=== PATIENT | male | born 1950 | race Caucasian/White ===

== ENCOUNTER 2017-10-08 20:50 | Inpatient (IN) | payer MEDICARE, BC ==
[2017-10-08] MEDS ORDERED: IPRATROPIUM 0.5 MG/2.5 ML NEBU INHALATION STA (21:20)
[2017-10-08] MEDS ORDERED: ALBUTEROL NEBULIZED 2.5 MG/3 ML INHALATION STA (21:20)
[2017-10-08] MEDS ORDERED: SODIUM CHLORIDE 0.9% 1,000 ML IV STA ×2 (21:20→22:48)
[2017-10-08 21:34] LABS: Basophils # (A) 0.1 k/uL (0-0.2); Basophils % (A) 0 %; Eosinophils # (A) 0.1 k/uL (0-0.7); Eosinophils % (A) 1 %; HCT 43.7 % (39.0-53.0); HGB 15.2 gm/dL (13.0-17.5); Lymphocytes # (A) 1.1 k/uL (1.0-4.8); Lymphocytes % (A) 6 %; MCH 30.3 pg (25.0-35.0); MCHC 34.9 g/dL (31.0-37.0); Mean Platelet Volume 6.5; Monocytes # (A) 1.1 k/uL (0-1.0); Monocytes % (A) 6 %; Neutrophils # (A) 14.6 k/uL (1.3-7.7); Neutrophils % (A) 85 %; Platelet Count 306 k/uL (150-450); RBC 5.03 m/uL (4.30-5.90); RDW 13.6 % (11.5-15.5); WBC 17.2 k/uL (3.8-10.6)
--- NOTE | 2017-10-08 21:37 | XR ---
EXAMINATION: XR chest 2V portable DATE AND TIME: 10/08/2017 9:30 PM ORDERING PROVIDER: García Ferrer DO CLINICAL INDICATION: sob TECHNIQUE: AP portable upright x 2 COMPARISON: None. DESCRIPTION: The lungs are clear. The pleural spaces are negative. The cardiac silhouette is not enlarged. The mediastinal and pleural silhouettes are unremarkable. The skeletal structures are intact without focal findings. The soft tissues are unremarkable. IMPRESSION: NO ACUTE PROCESS.
[2017-10-08 21:44] LABS: Prothrombin Time 10.2 sec (9.0-12.0)
[2017-10-08 21:48] LABS: ALT 35 U/L (21-72); AST 30 U/L (17-59); Albumin 3.9 g/dL (3.5-5.0); Alkaline Phosphatase 97 U/L (38-126); Anion Gap 10 mmol/L; Blood Urea Nitrogen 29 mg/dL (9-20); Calcium 9.8 mg/dL (8.4-10.2); Carbon Dioxide 30 mmol/L (22-30); Chloride 99 mmol/L (98-107); Glucose 144 mg/dL (74-99); Magnesium 2.3 mg/dL (1.6-2.3); Potassium 4.1 mmol/L (3.5-5.1); Sodium 139 mmol/L (137-145); Total Bilirubin 0.3 mg/dL (0.2-1.3)
[2017-10-08 22:03] LABS: Partial Thromboplastin Time 20.1 sec (22.0-30.0)
[2017-10-08 22:13] LABS: Creatine Kinase 70 U/L (55-170)
--- NOTE | 2017-10-08 22:15 | ED ---
General Adult HPI - General Chief complaint: Shortness of Breath Stated complaint: ALEXANDRA Time Seen by Provider: 10/08/17 21:13 Source: patient, RN notes reviewed, old records reviewed Mode of arrival: ambulatory Limitations: no limitations - History of Present Illness Initial comments: This is a 67-year-old male the ER for evaluation today. Patient's friend ER for evaluation of significant shortness of breath. Patient hasn't U recent medical history including hospitalization for COPD, then further hospitalization for influenza with fever. Patient is sure he did not have pneumonia while he was just recently in the hospital. Patient discharged on Friday has had progressively worsening and increasing shortness of breath. Patient is denying chest pain. He denies current fever - Related Data Home Medications Medication Instructions Recorded Confirmed ALPRAZolam [Xanax] 0.5 mg PO DAILY PRN 10/08/17 10/08/17 Albuterol Inhaler [Ventolin Hfa 1 - 2 puff INHALATION RT-QID PRN 10/08/17 Inhaler] Aspirin EC [Ecotrin Low Dose] 81 mg PO DAILY 10/08/17 10/08/17 Atorvastatin [Lipitor] 40 mg PO HS 10/08/17 10/08/17 Diltiazem HCl [Cartia Xt] 180 mg PO DAILY 10/08/17 10/08/17 Doxycycline Monohydrate [Monodox] 100 mg PO BID 10/08/17 10/08/17 Famotidine [Pepcid] 20 mg PO BID 10/08/17 10/08/17 Fluticasone/Salmeterol [Advair 1 puff INHALATION RT-BID 10/08/17 10/08/17 500-50 Diskus] Fluticasone/Vilanterol [Breo 1 puff INHALATION RT-DAILY 10/08/17 10/08/17 Ellipta 100-25 Mcg Inhaler] Ipratropium-Albuterol Nebulize 3 ml INHALATION RT-QID 10/08/17 10/08/17 [Duoneb 0.5 mg-3 mg/3 ml Soln] Levothyroxine Sodium [Synthroid] 100 mcg PO DAILY 10/08/17 10/08/17 Multivitamins, Thera [Multivitamin 1 tab PO DAILY 10/08/17 10/08/17 (formulary)] Oseltamivir [Tamiflu] 75 mg PO Q12HR 10/08/17 10/08/17 Roflumilast [Daliresp] 500 mcg PO DAILY 10/08/17 10/08/17 guaiFENesin [Mucinex] 600 mg PO BID 10/08/17 10/08/17 predniSONE See Taper PO DAILY 10/08/17 10/08/17 Allergies Allergy/AdvReac Type Severity Reaction Status Date / Time loracarbef [From Lorabid] Allergy Rash/Hives Verified 10/08/17 21:34 Review of Systems ROS Statement: Those systems with pertinent positive or pertinent negative responses have been documented in the HPI. ROS Other: All systems not noted in ROS Statement are negative. Past Medical History Past Medical History: COPD, Hyperlipidemia, Hypertension, Thyroid Disorder History of Any Multi-Drug Resistant Organisms: None Reported Past Surgical History: Heart Catheterization With Stent Past Psychological History: No Psychological Hx Reported Smoking Status: Former smoker Past Alcohol Use History: None Reported Past Drug Use History: None Reported General Exam Limitations: no limitations General appearance: alert, in no apparent distress, anxious Head exam: Present: atraumatic, normocephalic, normal inspection Eye exam: Present: normal appearance, PERRL, EOMI. Absent: scleral icterus, conjunctival injection, periorbital swelling ENT exam: Present: normal exam, mucous membranes moist Neck exam: Present: normal inspection. Absent: tenderness, meningismus, lymphadenopathy Respiratory exam: Present: respiratory distress, wheezes, accessory muscle use, decreased breath sounds, prolonged expiratory. Absent: normal lung sounds bilaterally, rales, rhonchi, stridor Cardiovascular Exam: Present: regular rate, normal rhythm, normal heart sounds. Absent: systolic murmur, diastolic murmur, rubs, gallop, clicks GI/Abdominal exam: Present: soft, normal bowel sounds. Absent: distended, tenderness, guarding, rebound, rigid Extremities exam: Present: normal inspection, full ROM, normal capillary refill. Absent: tenderness, pedal edema, joint swelling, calf tenderness Back exam: Present: normal inspection Neurological exam: Present: alert, oriented X3, CN II-XII intact Psychiatric exam: Present: normal affect, normal mood Skin exam: Present: warm, dry, intact, normal color. Absent: rash Course Vital Signs 10/08/17 10/08/17 10/08/17 20:53 21:17 21:56 Temperature 98.1 F Pulse Rate 111 H 93 Respiratory 22 28 H Rate Blood Pressure 153/74 O2 Sat by Pulse 92 L Oximetry 10/08/17 22:21 Temperature Pulse Rate 92 Respiratory Rate Blood Pressure O2 Sat by Pulse Oximetry - Reevaluation(s) Reevaluation #1: 10/08/17 22:47 Patient with worsening symptoms after prolonged breathing treatment, will do a repeat breathing treatment and placed on BiPAP EKG Findings - EKG Comments: EKG Findings:: EKG shows sinus tachycardia rate 102, AR 144, QRS 96, QTc 440 Medical Decision Making - Medical Decision Making 67 male the ER for evaluation, significantly severe shortness of breath with history of COPD. Blood in the patient for hypoxia, on BiPAP with severe COPD exacerbation - Lab Data Result diagrams: 10/08/17 21:15 10/08/17 21:15 Lab Results 10/08/17 10/08/17 10/08/17 Range/Units 21:15 21:15 21:15 WBC 17.2 H (3.8-10.6) k/uL RBC 5.03 (4.30-5.90) m/uL Hgb 15.2 (13.0-17.5) gm/dL Hct 43.7 (39.0-53.0) % MCV 87.0 (80.0-100.0) fL MCH 30.3 (25.0-35.0) pg MCHC 34.9 (31.0-37.0) g/dL RDW 13.6 (11.5-15.5) % Plt Count 306 (150-450) k/uL Neutrophils % 85 % Lymphocytes % 6 % Monocytes % 6 % Eosinophils % 1 % Basophils % 0 % Neutrophils # 14.6 H (1.3-7.7) k/uL Lymphocytes # 1.1 (1.0-4.8) k/uL Monocytes # 1.1 H (0-1.0) k/uL Eosinophils # 0.1 (0-0.7) k/uL Basophils # 0.1 (0-0.2) k/uL PT (9.0-12.0) sec INR (<1.2) APTT (22.0-30.0) sec Sodium 139 (137-145) mmol/L Potassium 4.1 (3.5-5.1) mmol/L Chloride 99 (98-107) mmol/L Carbon Dioxide 30 (22-30) mmol/L Anion Gap 10 mmol/L BUN 29 H (9-20) mg/dL Creatinine 0.65 L (0.66-1.25) mg/dL Est GFR (CKD-EPI)AfAm >90 (>60 ml/min/1.73 sqM) Est GFR (CKD-EPI)NonAf >90 (>60 ml/min/1.73 sqM) Glucose 144 H (74-99) mg/dL Calcium 9.8 (8.4-10.2) mg/dL Magnesium 2.3 (1.6-2.3) mg/dL Total Bilirubin 0.3 (0.2-1.3) mg/dL AST 30 (17-59) U/L ALT 35 (21-72) U/L Alkaline Phosphatase 97 (38-126) U/L Total Creatine Kinase 70 (55-170) U/L CK-MB (CK-2) 2.2 (0.0-2.4) ng/mL CK-MB (CK-2) Rel Index 3.1 Troponin I <0.012 (0.000-0.034) ng/mL NT-Pro-B Natriuret Pep pg/mL Total Protein 7.0 (6.3-8.2) g/dL Albumin 3.9 (3.5-5.0) g/dL 10/08/17 10/08/17 Range/Units 21:15 21:15 WBC (3.8-10.6) k/uL RBC (4.30-5.90) m/uL Hgb (13.0-17.5) gm/dL Hct (39.0-53.0) % MCV (80.0-100.0) fL MCH (25.0-35.0) pg MCHC (31.0-37.0) g/dL RDW (11.5-15.5) % Plt Count (150-450) k/uL Neutrophils % % Lymphocytes % % Monocytes % % Eosinophils % % Basophils % % Neutrophils # (1.3-7.7) k/uL Lymphocytes # (1.0-4.8) k/uL Monocytes # (0-1.0) k/uL Eosinophils # (0-0.7) k/uL Basophils # (0-0.2) k/uL PT 10.2 (9.0-12.0) sec INR 1.0 (<1.2) APTT 20.1 L (22.0-30.0) sec Sodium (137-145) mmol/L Potassium (3.5-5.1) mmol/L Chloride (98-107) mmol/L Carbon Dioxide (22-30) mmol/L Anion Gap mmol/L BUN (9-20) mg/dL Creatinine (0.66-1.25) mg/dL Est GFR (CKD-EPI)AfAm (>60 ml/min/1.73 sqM) Est GFR (CKD-EPI)NonAf (>60 ml/min/1.73 sqM) Glucose (74-99) mg/dL Calcium (8.4-10.2) mg/dL Magnesium (1.6-2.3) mg/dL Total Bilirubin (0.2-1.3) mg/dL AST (17-59) U/L ALT (21-72) U/L Alkaline Phosphatase (38-126) U/L Total Creatine Kinase (55-170) U/L CK-MB (CK-2) (0.0-2.4) ng/mL CK-MB (CK-2) Rel Index Troponin I (0.000-0.034) ng/mL NT-Pro-B Natriuret Pep 240 pg/mL Total Protein (6.3-8.2) g/dL Albumin (3.5-5.0) g/dL - Radiology Data Radiology results: report reviewed (Chest x-rays negative for acute disease), image reviewed Critical Care Time Critical Care Time: Yes Total Critical Care Time: 31 Disposition Clinical Impression: Acute exacerbation of chronic obstructive airways disease, Acute respiratory failure Disposition: ADMITTED IP TO THIS HOSP Condition: Serious Referrals: Matthew Muniz MD [Primary Care Provider] - 1-2 days
[2017-10-08 22:24] LABS: Creatine Kinase MB 2.2 ng/mL (0.0-2.4); Troponin I <0.012 ng/mL (0.000-0.034)
[2017-10-08] MEDS ORDERED: methylPREDNISolone SOD SUCCI 125 MG/2 ML VIAL IV STA (22:39)
[2017-10-08] MEDS ORDERED: MORPHINE SULFATE/PF 10MG/10ML VL IVP PRN (22:48)
[2017-10-08] MEDS ORDERED: MORPHINE SULFATE/PF 10MG/10ML VL IVP STA (22:48)
[2017-10-08] MEDS ORDERED: SODIUM CHLORIDE 0.9% 500 ML IV STA (22:48)
[2017-10-08] MEDS ORDERED: LORazepam 2 MG/ML INJ IV STA (22:48)
[2017-10-08] MEDS: SODIUM CHLORIDE 0.9% 1,000 ML IV SCH (23:04)
[2017-10-09] MEDS: OSELTAMIVIR 75 MG CAP PO SCH ×2 (00:54→08:01)
[2017-10-09] MEDS ORDERED: ALPRAZolam 0.5 MG TAB PO PRN (01:17)
[2017-10-09] MEDS ORDERED: TEMAZEPAM 15 MG CAP PO PRN (01:18)
[2017-10-09] MEDS ORDERED: AZITHROMYCIN 500 MG in SODIUM CHLORIDE 0.9% 250 ML IVPB SCH (01:30)
[2017-10-09 05:18] LABS: Appearance,Urine Clear (Clear); Bilirubin,Urine Negative (Negative); Blood,Urine Negative (Negative); Color,Urine Yellow; Glucose,Urine (UA) Negative (Negative); Ketones,Urine Negative (Negative); Leukocyte Esterase,Urine Negative (Negative); Nitrite,Urine Negative (Negative); Protein,Urine Negative (Negative); Specific Gravity,Urine 1.018 (1.001-1.035); Urobilinogen,Urine <2.0 mg/dL (<2.0)
[2017-10-09] MEDS: LEVOTHYROXINE 100 MCG TAB PO SCH (06:07)
[2017-10-09] MEDS: methylPREDNISolone SOD SUCCI 125 MG/2 ML VIAL IV SCH ×4 (06:08→23:41)
[2017-10-09 06:15] LABS: Glucose,Whole Blood 142 mg/dL (75-99)
[2017-10-09] MEDS: INSULIN ASPART 100 UNIT/ML 1 ML 10 ML VIAL SQ SCH ×4 (06:37→22:08)
[2017-10-09] MEDS: IPRATROPIUM-ALBUTEROL 3 ML NEB INHALATION SCH ×4 (07:08→20:43)
[2017-10-09] MEDS: FORMOTEROL FUMARATE 20 MCG/2 ML NEBU INHALATION SCH ×2 (07:08→20:43)
[2017-10-09] MEDS: BUDESONIDE 1 MG/2 ML NEBU INHALATION SCH ×2 (07:08→20:43)
--- NOTE | 2017-10-09 07:43 | HP ---
HISTORY AND PHYSICAL DATE OF SERVICE: 10/08/2017 CHIEF COMPLAINT: Shortness of breath. HISTORY OF PRESENT ILLNESS: This 67-year-old gentleman with a past medical history of CAD, COPD, hypertension, hyperlipidemia, history of CAD, stent being followed by Dr. Muniz and as well as Dr. Coe in the outpatient setting, was complaining of shortness of breath and cough. The patient presented to [facility] with influenza A was diagnosed and the patient was admitted for 4 days actually and patient was discharged yesterday. Because of increased shortness of breath and cough and sputum, patient came to [facility] and admitted for further evaluation and treatment. The patient also had complaints of rigors and chills. A chest x-ray which was done in the emergency room which was personally reviewed by me showed some increased bronchovascular markings. There is no history any headache, loss of consciousness or seizures. No history of chest pain or palpitation at this time. PAST MEDICAL HISTORY: Significant influenza A, CAD, COPD, hypertension, hyperlipidemia, history of CAD, stent. MEDICATIONS: Medications prior to admission include home medications are 1. Prednisone taper. 2. Mucinex 600 mg p.o. b.i.d. 3. Daliresp 500 mcg p.o. daily. 4. Tamiflu 75 mg p.o. b.i.d. 5. Multivitamins 1 p.o. daily. 6. Synthroid 100 mcg p.o. daily. 7. DuoNeb q.i.d. and p.r.n. 8. Breo Ellipta 1 puff daily. 9. Advair 1 puff b.i.d. 10.Pepcid 20 mg b.i.d. 11.Monodox 100 mg p.o. b.i.d. 12.Cartia XT 180 mg p.o. daily. 13.Lipitor 40 mg q.h.s. 14.Ecotrin 81 mg daily. 15.Ventolin HFA 1 to 2 puffs q.i.d. p.r.n. 16.Xanax 0.5 daily p.r.n. ALLERGIES: Allergies are LORABID. FAMILY HISTORY: History of CHF in the family. SOCIAL HISTORY: History of alcohol, previous history of smoking. REVIEW OF SYSTEMS: ENT: No diminished hearing or diminished vision. CARDIOVASCULAR SYSTEM: As mentioned earlier. RESPIRATORY SYSTEM: As mentioned earlier. GI: No nausea. : No dysuria. NERVOUS SYSTEM: No numbness or weakness. ALLERGY/IMMUNOLOGY: No history of asthma. MUSCULOSKELETAL: As mentioned earlier. HEMATOLOGY/ONCOLOGY: No history of anemia. ENDOCRINE: No history of diabetes. Hypothyroidism as mentioned. CONSTITUTIONAL: As mentioned earlier. DERMATOLOGY: Negative. RHEUMATOLOGY: Negative. PSYCHIATRY: As mentioned earlier. PHYSICAL EXAMINATION: The patient is alert and oriented x3. Pulse is 100, blood pressure 154/91, respiration 24, temp 97.2, pulse ox 94% on 3 L. HEENT: Conjunctivae normal. Oral mucosa moist. Neck is no jugular venous distention. No carotid bruit. No lymph node enlargement. CARDIOVASCULAR: S1 and S2 muffled. RESPIRATORY: Breath sounds diminished at the bases. A few scattered rhonchi. Expiratory wheezing also present. Chest is emphysematous. ABDOMEN: Soft, nontender. No mass palpable. LEGS: No edema, no swelling. NERVOUS SYSTEM: Higher functions as mentioned earlier. Moves all 4 limbs. No focal motor or sensory deficits. LYMPHATICS: No lymphadenopathy of the neck, axillae or groin. SKIN: No ulcer, rash or bleeding. LABS: WBC 17.3, hemoglobin 15.2. D-dimer is 0.7. Creatinine 0.65. Glucose 144. ASSESSMENT: 1. Shortness of breath with chronic obstructive pulmonary disease acute exacerbation with possibly acute purulent tracheobronchitis or early bronchopneumonia with recent influenza A, with rule out sepsis. 2. Increased WBC. 3. Coronary artery disease. 4. Chronic obstructive pulmonary disease. 5. Hypertension. 6. Hyperlipidemia. 7. History of hypothyroidism. 8. History of anxiety. 9. Remote history of nicotine dependence. RECOMMENDATIONS AND DISCUSSION: This 67-year-old gentleman who presented with multiple complex medical issues, will monitor the patient closely. Continue the current medications, continue symptomatic treatment. Will initiate intensive bronchodilator treatment, broad-spectrum IV antibiotics. I would also recommend cultures. Tamiflu to be continued. Pulmonary consultation, steroids. Guarded prognosis because of multiple complex medical issues. Further recommendations to follow. A copy of dictation forwarded to Dr. Muniz who is the primary physician. See orders for details. MMODL / IJN: [id number] /
[2017-10-09] MEDS: DILTIAZEM CD 180 MG CAP.ER.24H PO SCH (08:00)
[2017-10-09] MEDS: ENOXAPARIN 40 MG/0.4 ML SYRINGE SQ SCH (08:00)
[2017-10-09] MEDS: MULTIVITAMINS, THERA 1 EACH TAB PO SCH (08:01)
[2017-10-09] MEDS: ASPIRIN 81 MG PO SCH (08:01)
[2017-10-09] MEDS: FAMOTIDINE 20 MG TAB PO SCH ×2 (08:01→22:01)
[2017-10-09] MEDS: guaiFENesin 600 MG TABLET.ER PO SCH ×2 (08:01→22:00)
[2017-10-09] MEDS ORDERED: LEVOFLOXACIN 750MG-D5W PMX 750 MG in DEXTROSE/WATER 1 150ML.BAG IVPB SCH (10:00)
[2017-10-09] MEDS ORDERED: LEVOFLOXACIN 750 MG TAB PO SCH (10:00)
--- NOTE | 2017-10-09 11:11 | P.CNPUL ---
History of Present Illness Consult date: 10/09/17 Reason for consult: dyspnea, cough, COPD, hypoxemia Chief complaint: Shortness of breath History of present illness: Consult dated 10/09/2017 This is a 67-year-old male with a history of underlying COPD. He was at a hosp[facility] because he had he recently had influenza. He was treated with Tamiflu for 5 days. Initially got better and then got worse again. He came with complaints of increasing shortness of breath coughing wheezing chest tightness. Coughing up some phlegm. Slight fever and chills. He is feeling better generally but doesn't feel back to baseline. He was seen in the emergency room last night in admitted with a diagnosis of COPD exacerbation and recent influenza infection. In addition, he has a history of hyperlipidemia and hypertension as well as a history of hypothyroidism. This is a patient sitting at the bedside with his next to him. He is on a breathing treatment right now. Does have nasal O2 in place. He does feel a bit better. I did tell him it would take about 3 or 4 days before he would probably be able to be discharged. I do see him in the office for COPD. Review of Systems A 12 point review of systems is positive for shortness breath chest tightness wheezing cough phlegm production. He is feeling a bit better than yesterday when he first came into the emergency room. Past Medical History Past Medical History: Coronary Artery Disease (CAD), COPD, Hyperlipidemia, Hypertension, Respiratory Disorder, Skin Disorder, Thyroid Disorder History of Any Multi-Drug Resistant Organisms: None Reported Past Surgical History: Heart Catheterization With Stent Additional Past Surgical History / Comment(s): 2 stents placed in 2015 Past Anesthesia/Blood Transfusion Reactions: No Reported Reaction Date of Last Stent Placement:: 2015 Past Psychological History: Anxiety Smoking Status: Former smoker Past Alcohol Use History: None Reported Past Drug Use History: None Reported - Past Family History Father Family Medical History: Congestive Heart Failure (CHF) Additional Family Medical History / Comment(s): at age 79 Mother Family Medical History: Diabetes Mellitus Additional Family Medical History / Comment(s): at age 83 Medications and Allergies Home Medications Medication Instructions Recorded Confirmed Type ALPRAZolam [Xanax] 0.5 mg PO DAILY PRN 10/08/17 10/08/17 History Albuterol Inhaler [Ventolin Hfa 1 - 2 puff INHALATION RT-QID PRN 10/08/17 History Inhaler] Aspirin EC [Ecotrin Low Dose] 81 mg PO DAILY 10/08/17 10/08/17 History Atorvastatin [Lipitor] 40 mg PO HS 10/08/17 10/08/17 History Diltiazem HCl [Cartia Xt] 180 mg PO DAILY 10/08/17 10/08/17 History Doxycycline Monohydrate [Monodox] 100 mg PO BID 10/08/17 10/08/17 History Famotidine [Pepcid] 20 mg PO BID 10/08/17 10/08/17 History Fluticasone/Salmeterol [Advair 1 puff INHALATION RT-BID 10/08/17 10/08/17 History 500-50 Diskus] Fluticasone/Vilanterol [Breo 1 puff INHALATION RT-DAILY 10/08/17 10/08/17 History Ellipta 100-25 Mcg Inhaler] Ipratropium-Albuterol Nebulize 3 ml INHALATION RT-QID 10/08/17 10/08/17 History [Duoneb 0.5 mg-3 mg/3 ml Soln] Levothyroxine Sodium [Synthroid] 100 mcg PO DAILY 10/08/17 10/08/17 History Multivitamins, Thera [Multivitamin 1 tab PO DAILY 10/08/17 10/08/17 History (formulary)] Oseltamivir [Tamiflu] 75 mg PO Q12HR 10/08/17 10/08/17 History Roflumilast [Daliresp] 500 mcg PO DAILY 10/08/17 10/08/17 History guaiFENesin [Mucinex] 600 mg PO BID 10/08/17 10/08/17 History predniSONE See Taper PO DAILY 10/08/17 10/08/17 History Allergies Allergy/AdvReac Type Severity Reaction Status Date / Time loracarbef [From Lorabid] Allergy Rash/Hives Verified 10/08/17 21:34 Physical Exam Osteopathic Statement: *. No significant issues noted on an osteopathic structural exam other than those noted in the History and Physical/Consult. Vitals: Vital Signs Temp Pulse Pulse Resp BP BP Pulse Ox 10/09/17 11:03 24 10/09/17 10:50 92 10/09/17 10:38 90 10/09/17 08:00 96.2 F L 105 H 24 168/76 95 10/09/17 07:29 95 10/09/17 07:19 94 10/09/17 07:18 94 10/09/17 07:08 94 10/09/17 04:00 97.5 F L 100 24 168/78 95 10/09/17 03:16 22 10/08/17 23:45 97.2 F L 100 24 154/91 95 10/08/17 23:32 97.5 F L 100 20 167/86 97 10/08/17 23:04 103 H 22 142/75 94 L 10/08/17 22:49 109 H 26 H 154/115 93 L 10/08/17 22:21 92 10/08/17 21:56 93 10/08/17 21:17 28 H 10/08/17 20:53 98.1 F 111 H 22 153/74 92 L Intake and Output 10/08/17 10/09/17 10/09/17 22:59 06:59 14:59 Intake Total 600 120 Balance 600 120 Intake: IV 600 Sodium Chloride 0.9% 1, 600 000 ml @ 100 mls/hr IV . Q10H [facility] Rx#:[id number] Oral 120 Other: Voiding Method Urinal Urinal Weight 92.533 kg 88.5 kg No acute distress, oriented 3. The patient has mild tachypnea. HEENT examination is grossly unremarkable. Mucous membranes are moist. No oral lesions. Neck supple. Full range of motion. No adenopathy thyromegaly or neck vein distention. Cardiovascular examination reveals regular rhythm rate. S1-S2 normal. No S3 or S4. No discernible murmur noted. Lungs reveal diminished breath sounds. There is coarse inspiratory and expiratory rhonchi and expiratory wheezes noted. Breath sounds are equal bilaterally. There is prolongation on forced maneuver. Abdomen soft bowel sounds are heard. No masses or tenderness. Extremities are intact. No cyanosis clubbing or edema. Skin is without rash or lesion. Neurologic examination is brief but nonfocal. Results - Laboratory Findings CBC and BMP: 10/08/17 21:15 10/08/17 21:15 PT/INR, D-dimer PT 10.2 sec (9.0-12.0) 03/21/18 21:15 INR 1.0 (<1.2) 10/08/17 21:15 D-Dimer 0.70 mg/L FEU (<0.60) H 10/08/17 21:15 Abnormal lab findings: Abnormal Labs 10/08/17 10/08/17 10/08/17 21:15 21:15 21:15 WBC 17.2 H Neutrophils # 14.6 H Monocytes # 1.1 H APTT 20.1 L D-Dimer BUN 29 H Creatinine 0.65 L Glucose 144 H POC Glucose (mg/dL) Plasma Lactic Acid Sonny 10/08/17 10/09/17 10/09/17 21:15 05:35 06:02 WBC Neutrophils # Monocytes # APTT D-Dimer 0.70 H BUN Creatinine Glucose POC Glucose (mg/dL) 142 H Plasma Lactic Acid Sonny 2.7 H* 10/09/17 10:22 WBC Neutrophils # Monocytes # APTT D-Dimer BUN Creatinine Glucose POC Glucose (mg/dL) Plasma Lactic Acid Sonny 3.3 H* - Diagnostic Findings Chest x-ray: image reviewed (The patient's labs x-rays a medications are all reviewed.) Assessment and Plan Assessment: Assessment COPD exacerbation complicated by purulent tracheobronchitis Recent influenza infection Hyperlipidemia Hypertension Hypothyroidism Previous heavy tobacco use History of anxiety Coronary artery disease with stent placement Plan: Plan dated 10/09/2017 The patient's medications and labs will be reviewed. The patient was placed on DuoNeb's 4 times a day and when necessary. We'll also add Pulmicort 1 mg mixed with formoterol twice a day. The patient will get systemic corticosteroids and some antibiotics. Additional recommendations and suggestions are forthcoming. Prognosis is guarded. We'll continue to follow closely. X-rays labs and medications are all reviewed and adjusted accordingly. Time with Patient: Greater than 30
[2017-10-09 11:22] LABS: Glucose,Whole Blood 128 mg/dL (75-99)
[2017-10-09] MEDS: ALPRAZolam 0.5 MG TAB PO PRN ×2 (14:53→22:08)
[2017-10-09 15:15] LABS: Hemoglobin A1C 5.7 % (4.0-6.0)
[2017-10-09 15:32] LABS: Glucose,Whole Blood 168 mg/dL (75-99)
[2017-10-09] MEDS: SODIUM CHLORIDE 0.9% 1,000 ML IV SCH ×2 (16:53→22:00)
[2017-10-09] MEDS ORDERED: SODIUM CHLORIDE 0.9% 1,000 ML IV ONE (17:31)
[2017-10-09 21:20] LABS: Glucose,Whole Blood 114 mg/dL (75-99)
[2017-10-09] MEDS: ATORVASTATIN 40 MG TAB PO SCH (22:00)
[2017-10-09] MEDS: LEVOFLOXACIN 500MG-D5W PMX 500 MG in DEXTROSE/WATER 1 100ML.BAG IVPB SCH (22:01)
[2017-10-10] MEDS: SODIUM CHLORIDE 0.9% 1,000 ML IV SCH ×5 (02:58→20:32)
[2017-10-10] MEDS: cefTRIAXone IN SWFI 1,000 MG/10 ML SYRINGE IVP SCH ×2 (02:59→03:00)
[2017-10-10] MEDS: IPRATROPIUM-ALBUTEROL 3 ML NEB INHALATION SCH ×5 (04:24→19:55)
[2017-10-10 04:28] LABS: Basophils # (A) 0.1 k/uL (0-0.2); Basophils % (A) 0 %; Eosinophils % (A) 0 %; HGB 13.9 gm/dL (13.0-17.5); Lymphocytes # (A) 0.7 k/uL (1.0-4.8); Lymphocytes % (A) 7 %; MCH 29.7 pg (25.0-35.0); MCV 87.3 fL (80.0-100.0); Mean Platelet Volume 6.4; Monocytes # (A) 0.4 k/uL (0-1.0); Monocytes % (A) 4 %; Neutrophils # (A) 9.2 k/uL (1.3-7.7); Neutrophils % (A) 87 %; Platelet Count 279 k/uL (150-450); RDW 13.3 % (11.5-15.5); WBC 10.6 k/uL (3.8-10.6)
[2017-10-10 04:43] LABS: Anion Gap 10 mmol/L; Blood Urea Nitrogen 18 mg/dL (9-20); Calcium 9.1 mg/dL (8.4-10.2); Carbon Dioxide 29 mmol/L (22-30); Chloride 103 mmol/L (98-107); Glucose 128 mg/dL (74-99); Potassium 4.2 mmol/L (3.5-5.1); Sodium 142 mmol/L (137-145)
[2017-10-10 05:56] LABS: Glucose,Whole Blood 117 mg/dL (75-99)
[2017-10-10] MEDS: INSULIN ASPART 100 UNIT/ML 1 ML 10 ML VIAL SQ SCH ×4 (06:18→22:25)
[2017-10-10] MEDS: LEVOTHYROXINE 100 MCG TAB PO SCH (06:20)
[2017-10-10] MEDS: methylPREDNISolone SOD SUCCI 125 MG/2 ML VIAL IV SCH ×4 (06:20→22:25)
[2017-10-10] MEDS: BUDESONIDE 1 MG/2 ML NEBU INHALATION SCH ×2 (07:28→19:55)
[2017-10-10] MEDS: FORMOTEROL FUMARATE 20 MCG/2 ML NEBU INHALATION SCH ×2 (07:28→19:55)
[2017-10-10] MEDS: ALPRAZolam 0.5 MG TAB PO PRN ×2 (07:34→20:32)
[2017-10-10] MEDS: DILTIAZEM CD 180 MG CAP.ER.24H PO SCH (07:35)
[2017-10-10] MEDS: FAMOTIDINE 20 MG TAB PO SCH ×2 (07:35→20:31)
[2017-10-10] MEDS: MULTIVITAMINS, THERA 1 EACH TAB PO SCH (07:35)
[2017-10-10] MEDS: guaiFENesin 600 MG TABLET.ER PO SCH ×2 (07:35→20:31)
[2017-10-10] MEDS: ASPIRIN 81 MG PO SCH (07:35)
[2017-10-10] MEDS: ENOXAPARIN 40 MG/0.4 ML SYRINGE SQ SCH (07:35)
--- NOTE | 2017-10-10 08:57 | P.CONS ---
History of Present Illness - Reason for Consult Consult date: 10/10/17 Sepsis - History of Present Illness This is a 67-year-old male with a past medical history of COPD and follows with Dr. Coe. Patient was hospitalized in July at [facility] in [facility] for COPD exacerbation. He was hospitalized again within the past week for COPD exacerbation and tested positive for influenza A on October 04. Patient was on Tamiflu along with antibiotics while hospitalized and was discharged on Friday with doxycycline and continued on Tamiflu. Patient states that when he left the hospital he was still having trouble with breathing but no more fevers. He has a cough that is mostly nonproductive. His shortness of breath continued to worsen and he came into [facility] emergency center on Friday and was started on Levaquin, Solu-Medrol , DuoNeb treatments, Pulmicort and Perforomist and admitted to the selective care unit. Patient is followed by Dr. Stark. Patient did receive a dose of both ceftriaxone and azithromycin in the emergency center. Patient is no longer on Tamiflu. He is and droplet isolation. On presentation, patient was afebrile, white count was 17.2 which is improved to 10.6. Creatinine 0.65, d- dimer 0.7, lactic acid initially 3.3 and now 1.9. Troponin 0.012. Urinalysis was clear with nitrate and leukoesterase negative. Chest x-ray showed no acute process. There is a C. diff testing that has not been collected but patient states he presented with diarrhea but this has resolved he has had none since. He has had decreased appetite. No nausea or vomiting. At this time, patient states that his breathing continues to be difficult but improved since he arrived. Patient was on BiPAP during the night. He denies any history of obstructive sleep apnea. No cultures have been ordered. Review of Systems All systems: negative Constitutional: Reports fatigue, Reports poor appetite, Denies anorexia, Denies chills, Denies fever Eyes: denies blurred vision, denies pain Ears, nose, mouth and throat: Denies dental pain, Denies headache, Denies mouth pain, Denies sore throat Cardiovascular: Reports leg edema, Reports palpitations, Reports shortness of breath, Reports syncope, Denies chest pain, Denies decreased exercise tolerance , Denies dyspnea on exertion, Denies lightheadedness Respiratory: Reports cough, Reports cough with sputum, Reports dyspnea, Reports home oxygen, Reports respiratory infections, Reports wheezing, Denies excessive sputum, Denies hemoptysis Gastrointestinal: Reports loss of appetite, Denies abdominal pain, Denies diarrhea, Denies nausea, Denies vomiting Genitourinary: Denies dysuria Musculoskeletal: Denies myalgias Integumentary: Denies pruritus, Denies rash Neurological: Denies numbness, Denies weakness Psychiatric: Denies anxiety, Denies depression Endocrine: Denies fatigue, Denies weight change Past Medical History Past Medical History: Coronary Artery Disease (CAD), COPD, Hyperlipidemia, Hypertension, Respiratory Disorder, Skin Disorder, Thyroid Disorder History of Any Multi-Drug Resistant Organisms: None Reported Past Surgical History: Heart Catheterization With Stent Additional Past Surgical History / Comment(s): 2 stents placed in 2015 Past Anesthesia/Blood Transfusion Reactions: No Reported Reaction Date of Last Stent Placement:: 2015 Past Psychological History: Anxiety Smoking Status: Former smoker Past Alcohol Use History: None Reported Additional Past Alcohol Use History / Comment(s): Patient was a smoker one pack per day for 43 years and quit inferior 2012. He does have home O2 at 2 L nasal cannula that he only uses at nighttime. 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 He lives at home with his . They travel to the [facility] and to [place] to visit their children. Past Drug Use History: None Reported - Past Family History Father Family Medical History: Congestive Heart Failure (CHF) Additional Family Medical History / Comment(s): at age 79 Mother Family Medical History: Diabetes Mellitus Additional Family Medical History / Comment(s): at age 83 Medications and Allergies Home Medications Medication Instructions Recorded Confirmed Type ALPRAZolam [Xanax] 0.5 mg PO DAILY PRN 10/08/17 10/08/17 History Albuterol Inhaler [Ventolin Hfa 1 - 2 puff INHALATION RT-QID PRN 10/08/17 History Inhaler] Aspirin EC [Ecotrin Low Dose] 81 mg PO DAILY 10/08/17 10/08/17 History Atorvastatin [Lipitor] 40 mg PO HS 10/08/17 10/08/17 History Diltiazem HCl [Cartia Xt] 180 mg PO DAILY 10/08/17 10/08/17 History Doxycycline Monohydrate [Monodox] 100 mg PO BID 10/08/17 10/08/17 History Famotidine [Pepcid] 20 mg PO BID 10/08/17 10/08/17 History Fluticasone/Salmeterol [Advair 1 puff INHALATION RT-BID 10/08/17 10/08/17 History 500-50 Diskus] Fluticasone/Vilanterol [Breo 1 puff INHALATION RT-DAILY 10/08/17 10/08/17 History Ellipta 100-25 Mcg Inhaler] Ipratropium-Albuterol Nebulize 3 ml INHALATION RT-QID 10/08/17 10/08/17 History [Duoneb 0.5 mg-3 mg/3 ml Soln] Levothyroxine Sodium [Synthroid] 100 mcg PO DAILY 10/08/17 10/08/17 History Multivitamins, Thera [Multivitamin 1 tab PO DAILY 10/08/17 10/08/17 History (formulary)] Oseltamivir [Tamiflu] 75 mg PO Q12HR 10/08/17 10/08/17 History Roflumilast [Daliresp] 500 mcg PO DAILY 10/08/17 10/08/17 History guaiFENesin [Mucinex] 600 mg PO BID 10/08/17 10/08/17 History predniSONE See Taper PO DAILY 10/08/17 10/08/17 History Allergies Allergy/AdvReac Type Severity Reaction Status Date / Time loracarbef [From Lorabid] Allergy Rash/Hives Verified 10/08/17 21:34 Physical Exam Vitals: Vital Signs Temp Pulse Pulse Resp BP Pulse Ox 10/10/17 07:46 97.5 F L 91 18 123/82 94 L 10/10/17 07:44 92 10/10/17 07:43 92 10/10/17 07:31 88 10/10/17 04:37 88 10/10/17 04:26 87 10/10/17 04:00 97.6 F 91 18 151/78 93 L 10/10/17 00:00 97.5 F L 93 18 133/83 97 10/09/17 21:12 99 18 10/09/17 20:56 94 18 10/09/17 20:55 99 18 10/09/17 20:43 94 18 10/09/17 20:00 102 H 18 167/79 93 L 10/09/17 16:00 96 16 140/68 96 10/09/17 15:30 90 18 10/09/17 15:22 94 18 10/09/17 11:44 93 16 145/67 94 L 10/09/17 11:03 24 10/09/17 10:50 92 10/09/17 10:38 90 Intake and Output 10/09/17 10/10/17 10/10/17 22:59 06:59 14:59 Intake Total 2320 180 Output Total 450 325 Balance 1870 -325 180 Intake: IV 1200 Sodium Chloride 0.9% 1, 1200 000 ml @ 150 mls/hr IV . Q6H40M [facility] Rx#:[id number] Intake, IV Titration 1000 Amount Sodium Chloride 0.9% 1, 1000 000 ml @ 999 mls/hr IV . Q1H1M [facility] Rx#:[id number] Oral 120 180 Output: Urine 450 325 Other: Voiding Method Urinal # Voids 1 1 Gen: This is a 67-year-old male. He is sitting in a tripod position and appears to have mild respiratory distress with tachypnea. HEENT: Head is atraumatic, normocephalic. Pupils equal, round. Sclerae is anicteric. Conjunctiva pink. NECK: Supple. No JVD. No lymphadenopathy. No thyromegaly. LUNGS: Diminished breath sounds throughout with inspiratory and expiratory rhonchi and expiratory wheezes. Mild accessory muscle usage and intercostal retractions. Positive mild tachypnea HEART: Regular rate and rhythm. No murmur. ABDOMEN: Soft. Bowel sounds are present. No masses. No tenderness. EXTREMITIES: 1+ edema to the right foot, no pedal edema to the left. Dorsalis pedis +2 bilaterally. No calf tenderness. NEUROLOGICAL: Patient is awake, alert and oriented x3. Cranial nerves 2 through 12 are grossly intact. Results Results: Laboratory Results WBC 10.6 k/uL (3.8-10.6) 10/10/17 04:08 RBC 4.70 m/uL (4.30-5.90) 10/10/17 04:08 Hgb 13.9 gm/dL (13.0-17.5) 10/10/17 04:08 Hct 41.0 % (39.0-53.0) 10/10/17 04:08 MCV 87.3 fL (80.0-100.0) 10/10/17 04:08 MCH 29.7 pg (25.0-35.0) 10/10/17 04:08 MCHC 34.0 g/dL (31.0-37.0) 10/10/17 04:08 RDW 13.3 % (11.5-15.5) 10/10/17 04:08 Plt Count 279 k/uL (150-450) 10/10/17 04:08 Neutrophils % 87 % 10/10/17 04:08 Lymphocytes % 7 % 10/10/17 04:08 Monocytes % 4 % 10/10/17 04:08 Eosinophils % 0 % 10/10/17 04:08 Basophils % 0 % 10/10/17 04:08 Neutrophils # 9.2 k/uL (1.3-7.7) H 10/10/17 04:08 Lymphocytes # 0.7 k/uL (1.0-4.8) L 10/10/17 04:08 Monocytes # 0.4 k/uL (0-1.0) 10/10/17 04:08 Eosinophils # 0.0 k/uL (0-0.7) 10/10/17 04:08 Basophils # 0.1 k/uL (0-0.2) 10/10/17 04:08 PT 10.2 sec (9.0-12.0) 10/08/17 21:15 INR 1.0 (<1.2) 10/08/17 21:15 APTT 20.1 sec (22.0-30.0) L 10/08/17 21:15 D-Dimer 0.70 mg/L FEU (<0.60) H 10/08/17 21:15 Sodium 142 mmol/L (137-145) 10/10/17 04:08 Potassium 4.2 mmol/L (3.5-5.1) 10/10/17 04:08 Chloride 103 mmol/L (98-107) 10/10/17 04:08 Carbon Dioxide 29 mmol/L (22-30) 10/10/17 04:08 Anion Gap 10 mmol/L 10/10/17 04:08 BUN 18 mg/dL (9-20) 10/10/17 04:08 Creatinine 0.50 mg/dL (0.66-1.25) L 10/10/17 04:08 Est GFR (CKD-EPI)AfAm >90 (>60 ml/min/1.73 sqM) 10/10/17 04:08 Est GFR (CKD-EPI)NonAf >90 (>60 ml/min/1.73 sqM) 10/10/17 04:08 Glucose 128 mg/dL (74-99) H 10/10/17 04:08 POC Glucose (mg/dL) 117 mg/dL (75-99) H 10/10/17 05:54 POC Glu State Assessed Properties Director ID Natalie Banerjee 10/10/17 05:[address] Glu mg/dL 117 10/09/17 01:10 Hemoglobin A1c 5.7 % (4.0-6.0) 10/09/17 01:10 Lactic Ac Sepsis Rflx Y 10/10/17 00:52 Plasma Lactic Acid Sonny 1.9 mmol/L (0.7-2.0) 10/10/17 04:08 Calcium 9.1 mg/dL (8.4-10.2) 10/10/17 04:08 Magnesium 2.3 mg/dL (1.6-2.3) 10/08/17 21:15 Total Bilirubin 0.3 mg/dL (0.2-1.3) 10/08/17 21:15 AST 30 U/L (17-59) 10/08/17 21:15 ALT 35 U/L (21-72) 10/08/17 21:15 Alkaline Phosphatase 97 U/L (38-126) 10/08/17 21:15 Total Creatine Kinase 70 U/L (55-170) 10/08/17 21:15 CK-MB (CK-2) 2.2 ng/mL (0.0-2.4) 10/08/17 21:15 CK-MB (CK-2) Rel Index 3.1 10/08/17 21:15 Troponin I <0.012 ng/mL (0.000-0.034) 10/08/17 21:15 NT-Pro-B Natriuret Pep 240 pg/mL 10/08/17 21:15 Total Protein 7.0 g/dL (6.3-8.2) 10/08/17 21:15 Albumin 3.9 g/dL (3.5-5.0) 10/08/17 21:15 Urine Color Yellow 10/09/17 04:50 Urine Appearance Clear (Clear) 10/09/17 04:50 Urine pH 6.0 (5.0-8.0) 10/09/17 04:50 Ur Specific [place] 1.018 (1.001-1.035) 10/09/17 04:50 Urine Protein Negative (Negative) 10/09/17 04:50 Urine Glucose (UA) Negative (Negative) 10/09/17 04:50 Urine Ketones Negative (Negative) 10/09/17 04:50 Urine Blood Negative (Negative) 10/09/17 04:50 Urine Nitrite Negative (Negative) 10/09/17 04:50 Urine Bilirubin Negative (Negative) 10/09/17 04:50 Urine Urobilinogen <2.0 mg/dL (<2.0) 10/09/17 04:50 Ur Leukocyte Esterase Negative (Negative) 10/09/17 04:50 CBC & Chem 7: 10/10/17 04:08 10/10/17 04:08 Labs: Abnormal Lab Results - Last 24 Hours (Table) 10/09/17 10/09/17 10/09/17 Range/Units 10:22 11:17 15:26 Neutrophils # (1.3-7.7) k/uL Lymphocytes # (1.0-4.8) k/uL Creatinine (0.66-1.25) mg/dL Glucose (74-99) mg/dL POC Glucose (mg/dL) 128 H 168 H (75-99) mg/dL Plasma Lactic Acid Sonny 3.3 H* (0.7-2.0) mmol/L 10/09/17 10/10/17 10/10/17 Range/Units 21:17 00:15 04:08 Neutrophils # 9.2 H (1.3-7.7) k/uL Lymphocytes # 0.7 L (1.0-4.8) k/uL Creatinine (0.66-1.25) mg/dL Glucose (74-99) mg/dL POC Glucose (mg/dL) 114 H (75-99) mg/dL Plasma Lactic Acid Sonny 2.4 H* (0.7-2.0) mmol/L 10/10/17 10/10/17 Range/Units 04:08 05:54 Neutrophils # (1.3-7.7) k/uL Lymphocytes # (1.0-4.8) k/uL Creatinine 0.50 L (0.66-1.25) mg/dL Glucose 128 H (74-99) mg/dL POC Glucose (mg/dL) 117 H (75-99) mg/dL Plasma Lactic Acid Sonny (0.7-2.0) mmol/L Assessment and Plan Plan: This is a 67-year-old male patient presented to the hospital with acute exacerbation of COPD currently under treatment and management by Dr. Stark. Patient is currently on Levaquin for acute tracheobronchitis. No evidence of pneumonia on x-ray. He was recently admitted at [facility] in [facility] and and treated for COPD exacerbation and influenza A. Repeat influenza testing is positive for Influenza A and he will be resumed on Tamiflu. It appears patient has completed his course of Tamiflu. Continue supportive care. Further recommendations as patient progresses. The above dictated assessment and findings were discussed with Dr. Morales. The impression and plan of care have been directed as dictated. Sumaya Tang nurse practitioner acting as scribe for Dr. Morales.
[2017-10-10] MEDS ORDERED: LEVOFLOXACIN 750 MG TAB PO SCH (09:00)
[2017-10-10 12:35] LABS: Glucose,Whole Blood 143 mg/dL (75-99)
--- NOTE | 2017-10-10 13:38 | P.PN ---
Subjective Progress Note Date: 10/10/17 Principal diagnosis: Consult dated 10/09/2017 This is a 67-year-old male with a history of underlying COPD. He was at a hosp[facility] because he had he recently had influenza. He was treated with Tamiflu for 5 days. Initially got better and then got worse again. He came with complaints of increasing shortness of breath coughing wheezing chest tightness. Coughing up some phlegm. Slight fever and chills. He is feeling better generally but doesn't feel back to baseline. He was seen in the emergency room last night in admitted with a diagnosis of COPD exacerbation and recent influenza infection. In addition, he has a history of hyperlipidemia and hypertension as well as a history of hypothyroidism. This is a patient sitting at the bedside with his next to him. He is on a breathing treatment right now. Does have nasal O2 in place. He does feel a bit better. I did tell him it would take about 3 or 4 days before he would probably be able to be discharged. I do see him in the office for COPD. Progress note dated 10/10/2017 The patient is seen again today in follow-up on the selective care unit. He is awake and alert in no acute distress. He is breathing easier today as compared to yesterday. Still feeling quite weak and fatigued. He is afebrile. Hemodynamically stable. Maintaining good O2 saturations in the mid 90s on 3 L/ m per nasal cannula. White count 10.6. Hemoglobin 13.9. Creatinine 0.50. He is continued on DuoNeb inhalations, Pulmicort and perforomist, IV Solu-Medrol, antibiotics in the form of Levaquin, Influenza A is detected again today. Objective - Vital Signs Vital signs: Vital Signs Temp 97.4 F L 10/10/17 10:47 Pulse 100 10/10/17 11:15 Resp 18 10/10/17 11:28 BP 138/65 10/10/17 10:47 Pulse Ox 95 10/10/17 10:47 Intake & Output 10/09/17 10/10/17 10/10/17 18:59 06:59 18:59 Intake Total 2680 180 Output Total 800 775 225 Balance 9080 -535 -45 Intake: IV 1200 Sodium Chloride 0.9% 1, 1200 000 ml @ 150 mls/hr IV . Q6H40M [facility] Rx#:[id number] Intake, IV Titration 1000 Amount Sodium Chloride 0.9% 1, 1000 000 ml @ 999 mls/hr IV . Q1H1M [facility] Rx#:[id number] Oral 480 180 Output: Urine 800 775 225 Other: Voiding Method Urinal # Voids 1 - Exam GENERAL EXAM: Alert, weak, comfortable in no apparent distress. HEAD: Normocephalic. EYES: Normal reaction of pupils, equal size. NOSE: Clear with pink turbinates. THROAT: No erythema or exudates. NECK: No masses, no JVD. CHEST: No chest wall deformity. LUNGS: Equal air entry with bilateral wheezing, diminished throughout. CVS: S1 and S2 normal with no audible murmur, regular rhythm. ABDOMEN: No hepatosplenomegaly, normal bowel sounds, no guarding or rigidity. SPINE: No scoliosis or deformity SKIN: No rashes CENTRAL NERVOUS SYSTEM: No focal deficits, tone is normal in all 4 extremities. EXTREMITIES: There is no peripheral edema. No clubbing, no cyanosis. Peripheral pulses are intact. - Labs CBC & Chem 7: 10/10/17 04:08 10/10/17 04:08 Labs: Abnormal Lab Results - Last 24 Hours (Table) 10/09/17 10/09/17 10/10/17 Range/Units 15:26 21:17 00:15 Neutrophils # (1.3-7.7) k/uL Lymphocytes # (1.0-4.8) k/uL Creatinine (0.66-1.25) mg/dL Glucose (74-99) mg/dL POC Glucose (mg/dL) 168 H 114 H (75-99) mg/dL Plasma Lactic Acid Sonny 2.4 H* (0.7-2.0) mmol/L Influenza Type A RNA (Not Detectd) 10/10/17 10/10/17 10/10/17 Range/Units 04:08 04:08 05:54 Neutrophils # 9.2 H (1.3-7.7) k/uL Lymphocytes # 0.7 L (1.0-4.8) k/uL Creatinine 0.50 L (0.66-1.25) mg/dL Glucose 128 H (74-99) mg/dL POC Glucose (mg/dL) 117 H (75-99) mg/dL Plasma Lactic Acid Sonny (0.7-2.0) mmol/L Influenza Type A RNA (Not Detectd) 10/10/17 10/10/17 Range/Units 10:13 11:27 Neutrophils # (1.3-7.7) k/uL Lymphocytes # (1.0-4.8) k/uL Creatinine (0.66-1.25) mg/dL Glucose (74-99) mg/dL POC Glucose (mg/dL) 143 H (75-99) mg/dL Plasma Lactic Acid Sonny (0.7-2.0) mmol/L Influenza Type A RNA Detected H (Not Detectd) Assessment and Plan Assessment: Assessment COPD exacerbation complicated by purulent tracheobronchitis Recent influenza infection, influenza A+ today. Hyperlipidemia Hypertension Hypothyroidism Previous heavy tobacco use History of anxiety Coronary artery disease with stent placement Plan: The patient was seen and evaluated by Dr. Stark. He is improved today as compared to yesterday. We'll continue with his current medications. He remains and output precautions. We'll continue to follow make further recommendations based on his clinical status. I, the cosigning physician, performed a history & physical examination of the patient. Lungs sounds have bilateral end expiratory wheeze. Diminished. Maintaining good O2 saturations in the 90s on 3 L/m per nasal cannula. I discussed the assessment and plan of care with my nurse practitioner, Paradise Luo. I attest to the above note as dictated by her.
--- NOTE | 2017-10-10 14:05 | P.PN ---
Subjective Progress Note Date: 10/09/17 Progress note being dictated for Dr. Oliveros. Interval history: This is a 67-year-old gentleman admitted with acute COPD exacerbation, acute purulent tracheobronchitis, recent influenza A, possible sepsis and multiple other medical issues.Lactic Acid worsening, maintained on IV fluid hydration. Evaluated by pulmonary and infectious disease with recommendations noted. Maintained on nebulized bronchodilators, steroids and antibiotics. Currently sitting up at bedside, hunched over bedside table significantly labored breathing-awaiting nebulized treatment. Denies chest pain. Objective - Vital Signs Vital signs: Vital Signs Temp 96.2 F L 10/09/17 08:00 Pulse 96 10/09/17 16:00 Resp 16 10/09/17 16:00 BP 140/68 10/09/17 16:00 Pulse Ox 96 10/09/17 16:00 Intake & Output 10/08/17 10/09/17 10/09/17 18:59 06:59 18:59 Intake Total 600 480 Output Total 800 Balance 600 -320 Weight 88.5 kg Intake: IV 600 Sodium Chloride 0.9% 1, 600 000 ml @ 100 mls/hr IV . Q10H [facility] Rx#:[id number] Oral 480 Output: Urine 800 Other: Voiding Method Urinal Urinal - Exam PHYSICAL EXAM: VITAL SIGNS: As above GENERAL: Sitting up at bedside, increased respiratory effort HEENT: Conjunctivae normal. eyes normal. Oral mucosa moist NECK: No JVD. No thyroid enlargement. No LNs CARDIOVASCULAR: S1, S2 muffled. No murmur RESPIRATION: Breath sounds diminished in the bases. No rhonchi or crackles. Inspiratory and prolonged expiratory wheezing ABDOMEN: Soft, nontender . No guarding. no masses palpable.Bowel sounds heard. LEGS: No edema. no swelling PSYCHIATRY: Alert and oriented -3, mood and affect normal. NERVOUS SYSTEM: Cranial N 2-12 grossly normal. Moves all 4 limbs. Diffuse weakness No focal deficits. Skin: no ulcer no rash Joints: No active swelling. No inflammation. Lymphatic system. No LN neck axilla or groin. - Labs CBC & Chem 7: 10/10/17 04:08 10/10/17 04:08 Labs: Abnormal Lab Results - Last 24 Hours (Table) 10/08/17 10/08/17 10/08/17 Range/Units 21:15 21:15 21:15 WBC 17.2 H (3.8-10.6) k/uL Neutrophils # 14.6 H (1.3-7.7) k/uL Monocytes # 1.1 H (0-1.0) k/uL APTT 20.1 L (22.0-30.0) sec D-Dimer (<0.60) mg/L FEU BUN 29 H (9-20) mg/dL Creatinine 0.65 L (0.66-1.25) mg/dL Glucose 144 H (74-99) mg/dL POC Glucose (mg/dL) (75-99) mg/dL Plasma Lactic Acid Sonny (0.7-2.0) mmol/L 10/08/17 10/09/17 10/09/17 Range/Units 21:15 05:35 06:02 WBC (3.8-10.6) k/uL Neutrophils # (1.3-7.7) k/uL Monocytes # (0-1.0) k/uL APTT (22.0-30.0) sec D-Dimer 0.70 H (<0.60) mg/L FEU BUN (9-20) mg/dL Creatinine (0.66-1.25) mg/dL Glucose (74-99) mg/dL POC Glucose (mg/dL) 142 H (75-99) mg/dL Plasma Lactic Acid Sonny 2.7 H* (0.7-2.0) mmol/L 10/09/17 10/09/17 10/09/17 Range/Units 10:22 11:17 15:26 WBC (3.8-10.6) k/uL Neutrophils # (1.3-7.7) k/uL Monocytes # (0-1.0) k/uL APTT (22.0-30.0) sec D-Dimer (<0.60) mg/L FEU BUN (9-20) mg/dL Creatinine (0.66-1.25) mg/dL Glucose (74-99) mg/dL POC Glucose (mg/dL) 128 H 168 H (75-99) mg/dL Plasma Lactic Acid Sonny 3.3 H* (0.7-2.0) mmol/L Assessment and Plan Assessment: 1. Acute COPD exacerbation with acute purulent tracheobronchitis with sepsis 2. Recent influenza A 3. Leukocytes 4. COPD 5. Hypertension 6. Remote history of nicotine dependence 7. History of anxiety 8. CAD with history of stent placement 9. Hypothyroidism Plan: Continue on current medication regime, Tamiflu, monitoring and symptomatic treatment. Maintain antibiotics, nebulized bronchodilators and steroids. IV fluid hydration. Repeat labs in a.m. Follow closely with pulmonary and infectious disease. Further recommendations to follow. The impression and plan of care has been dictated as directed. : I performed a history and examination of this patient, discussed the same with the dictator. I agree with the dictator's note ,documented as a scribe. Any additional findings or plans will be noted.
[2017-10-10] MEDS ORDERED: MORPHINE ORAL SOLN 10 MG/5 ML CUP PO PRN (14:39)
[2017-10-10] MEDS: OSELTAMIVIR 75 MG CAP PO SCH ×2 (15:48→20:31)
[2017-10-10] MEDS: LEVOFLOXACIN 500MG-D5W PMX 500 MG in DEXTROSE/WATER 1 100ML.BAG IVPB SCH (15:48)
--- NOTE | 2017-10-10 16:21 | P.PN ---
Subjective Progress Note Date: 10/10/17 Progress note being dictated for Dr. Tang Interval history: This is a 67-year-old gentleman admitted with acute COPD exacerbation, acute purulent tracheobronchitis, recent influenza A, possible sepsis and multiple other medical issues.Lactic Acid worsening, maintained on IV fluid hydration. Evaluated by pulmonary and infectious disease with recommendations noted. Maintained on nebulized bronchodilators, steroids and antibiotics. Currently sitting up at bedside, hunched over bedside table significantly labored breathing-awaiting nebulized treatment. Denies chest pain. 10/10/2017 maintained on nebulized bronchodilators, steroids, Levaquin, Tamiflu , with breathing effort significantly improved today. Afebrile. Maintaining O2 sats in the mid 90s on 3 L nasal cannula. Objective - Vital Signs Vital signs: Vital Signs Temp 97.6 F 10/10/17 15:45 Pulse 93 10/10/17 15:45 Resp 18 10/10/17 15:45 BP 166/73 10/10/17 15:45 Pulse Ox 96 10/10/17 15:45 Intake & Output 10/09/17 10/10/17 10/10/17 18:59 06:59 18:59 Intake Total 2680 180 Output Total 800 775 225 Balance 1880 -775 -45 Intake: IV 1200 Sodium Chloride 0.9% 1, 1200 000 ml @ 150 mls/hr IV . Q6H40M [facility] Rx#:[id number] Intake, IV Titration 1000 Amount Sodium Chloride 0.9% 1, 1000 000 ml @ 999 mls/hr IV . Q1H1M [facility] Rx#:[id number] Oral 480 180 Output: Urine 800 775 225 Other: Voiding Method Urinal # Voids 1 - Exam PHYSICAL EXAM: VITAL SIGNS: As above GENERAL: Sitting up at bedside, no acute distress HEENT: Conjunctivae normal. eyes normal. Oral mucosa moist NECK: No JVD. No thyroid enlargement. No LNs CARDIOVASCULAR: S1, S2 muffled. No murmur RESPIRATION: Breath sounds diminished in the bases. No rhonchi or crackles. Inspiratory and prolonged expiratory wheezing ABDOMEN: Soft, nontender . No guarding. no masses palpable.Bowel sounds heard. LEGS: No edema. no swelling PSYCHIATRY: Alert and oriented -3, mood and affect normal. NERVOUS SYSTEM: Cranial N 2-12 grossly normal. Moves all 4 limbs. Diffuse weakness No focal deficits. Skin: no ulcer no rash Joints: No active swelling. No inflammation. Lymphatic system. No LN neck axilla or groin. - Labs CBC & Chem 7: 10/10/17 04:08 10/10/17 04:08 Labs: Abnormal Lab Results - Last 24 Hours (Table) 10/09/17 10/10/17 10/10/17 Range/Units 21:17 00:15 04:08 Neutrophils # 9.2 H (1.3-7.7) k/uL Lymphocytes # 0.7 L (1.0-4.8) k/uL Creatinine (0.66-1.25) mg/dL Glucose (74-99) mg/dL POC Glucose (mg/dL) 114 H (75-99) mg/dL Plasma Lactic Acid Sonny 2.4 H* (0.7-2.0) mmol/L Influenza Type A RNA (Not Detectd) 10/10/17 10/10/17 10/10/17 Range/Units 04:08 05:54 10:13 Neutrophils # (1.3-7.7) k/uL Lymphocytes # (1.0-4.8) k/uL Creatinine 0.50 L (0.66-1.25) mg/dL Glucose 128 H (74-99) mg/dL POC Glucose (mg/dL) 117 H (75-99) mg/dL Plasma Lactic Acid Sonny (0.7-2.0) mmol/L Influenza Type A RNA Detected H (Not Detectd) 10/10/17 Range/Units 11:27 Neutrophils # (1.3-7.7) k/uL Lymphocytes # (1.0-4.8) k/uL Creatinine (0.66-1.25) mg/dL Glucose (74-99) mg/dL POC Glucose (mg/dL) 143 H (75-99) mg/dL Plasma Lactic Acid Sonny (0.7-2.0) mmol/L Influenza Type A RNA (Not Detectd) Assessment and Plan Assessment: 1. Acute COPD exacerbation with acute purulent tracheobronchitis with sepsis 2. influenza A 3. Leukocytes 4. COPD 5. Hypertension 6. Remote history of nicotine dependence 7. History of anxiety 8. CAD with history of stent placement 9. Hypothyroidism Plan: Continue on current medication regime, Tamiflu, monitoring and symptomatic treatment. Maintain antibiotics, nebulized bronchodilators and steroids. IV fluid hydration. Increase ambulation as tolerated. The impression and plan of care has been dictated as directed. : I performed a history and examination of this patient, discussed the same with the dictator. I agree with the dictator's note ,documented as a scribe. Any additional findings or plans will be noted.
[2017-10-10 17:04] LABS: Glucose,Whole Blood 130 mg/dL (75-99)
[2017-10-10] MEDS: ATORVASTATIN 40 MG TAB PO SCH (20:31)
[2017-10-10 20:45] LABS: Glucose,Whole Blood 118 mg/dL (75-99)
--- NOTE | 2017-10-10 21:48 | P.CON ---
Consult Note - . Consult date: 10/10/17 Assessment/Plan:: This is a 67-year-old male with a past medical history of COPD and follows with Dr. oCe. Patient was hospitalized in July at [facility] in [facility] for COPD exacerbation. He was hospitalized again within the past week for COPD exacerbation and tested positive for influenza A on October 04. Patient was on Tamiflu along with antibiotics while hospitalized and was discharged on Friday with doxycycline and continued on Tamiflu. Patient states that when he left the hospital he was still having trouble with breathing but no more fevers. He has a cough that is mostly no nproductive. His shortness of breath continued to worsen and he came into [facility] emergency center on Friday and was started on Levaquin, Solu-Medrol , DuoNeb treatments, Pulmicort and Perforomist and admitted to the selective care unit. Patient is followed by Dr. Stark. Patient did receive a dose of both ceftriaxone and azithromycin in the emergency center. Patient is no longer on Tamiflu. He is and droplet isolation. On presentation, patient was afebrile, white count was 17.2 which is improved to 10.6. Creatinine 0.65, d- dimer 0.7, lactic acid initially 3.3 and now 1.9. Troponin 0.012. Urinalysis was clear with nitrate and leukoesterase negative. Chest x-ray showed no acute process. There is a C. diff testing that has not been collected but patient states he presented with diarrhea but this has resolved he has had none since. He has had decreased appetite. No nausea or vomiting. At this time, patient states that his breathing continues to be difficult but improved since he arrived. Patient was on BiPAP during the night. He denies any history of obstructive sleep apnea. No cultures have been ordered.Please see the consult note as dictated by [employer] Siobhan Suamya Tang. 67year old male with a history of oxygen dependent COPD presented to his local hospital with severe shortness of breath, was found to have influenza and was treated with Tamiflu for 10 doses then discharged to home, within a short time he became much more short of breath and presented to the ER at [facility], admitted with exacerbation of COPD. At the time of the consult a stat PCR for Influenza was done and is positive. It appears that the patient did not have a complete response to the traditional course of therapy, as per CDC if needed the course of treatment can be extended as needed to allow resolution of the infection. Tamiflu is continued with the treatment of the COPD. Noninvasive ventilatory support will be utilized as needed. I agree with evaluation, assessment and plan as as dictated by nurse practitioner Mrs. Sumaya Tang
[2017-10-11] MEDS: IPRATROPIUM-ALBUTEROL 3 ML NEB INHALATION PRN (01:14)
[2017-10-11] MEDS: methylPREDNISolone SOD SUCCI 125 MG/2 ML VIAL IV SCH ×4 (06:39→23:52)
[2017-10-11] MEDS: SODIUM CHLORIDE 0.9% 1,000 ML IV SCH ×4 (06:40→20:09)
[2017-10-11] MEDS: LEVOTHYROXINE 100 MCG TAB PO SCH (06:40)
[2017-10-11] MEDS: INSULIN ASPART 100 UNIT/ML 1 ML 10 ML VIAL SQ SCH ×4 (06:48→22:43)
[2017-10-11 06:50] LABS: Basophils % (A) 0 %; Eosinophils % (A) 0 %; HCT 39.9 % (39.0-53.0); HGB 13.4 gm/dL (13.0-17.5); Lymphocytes # (A) 0.6 k/uL (1.0-4.8); Lymphocytes % (A) 5 %; MCH 29.3 pg (25.0-35.0); MCHC 33.6 g/dL (31.0-37.0); Mean Platelet Volume 7.2; Monocytes # (A) 0.6 k/uL (0-1.0); Monocytes % (A) 5 %; Neutrophils # (A) 10.8 k/uL (1.3-7.7); Neutrophils % (A) 89 %; Platelet Count 211 k/uL (150-450); RBC 4.59 m/uL (4.30-5.90); RDW 13.3 % (11.5-15.5); WBC 12.2 k/uL (3.8-10.6)
[2017-10-11 06:50] LABS: Glucose,Whole Blood 113 mg/dL (75-99)
[2017-10-11 07:29] LABS: Anion Gap 7 mmol/L; Blood Urea Nitrogen 18 mg/dL (9-20); Calcium 8.8 mg/dL (8.4-10.2); Carbon Dioxide 32 mmol/L (22-30); Chloride 106 mmol/L (98-107); Glucose 124 mg/dL (74-99); Potassium 3.9 mmol/L (3.5-5.1); Sodium 145 mmol/L (137-145)
[2017-10-11] MEDS: ENOXAPARIN 40 MG/0.4 ML SYRINGE SQ SCH (08:23)
[2017-10-11] MEDS: MULTIVITAMINS, THERA 1 EACH TAB PO SCH (08:24)
[2017-10-11] MEDS: ASPIRIN 81 MG PO SCH (08:24)
[2017-10-11] MEDS: FAMOTIDINE 20 MG TAB PO SCH ×2 (08:24→20:08)
[2017-10-11] MEDS: OSELTAMIVIR 75 MG CAP PO SCH ×2 (08:24→20:08)
[2017-10-11] MEDS: DILTIAZEM CD 180 MG CAP.ER.24H PO SCH (08:24)
[2017-10-11] MEDS: guaiFENesin 600 MG TABLET.ER PO SCH ×2 (08:24→20:08)
[2017-10-11] MEDS: FORMOTEROL FUMARATE 20 MCG/2 ML NEBU INHALATION SCH ×2 (08:48→21:04)
[2017-10-11] MEDS: BUDESONIDE 1 MG/2 ML NEBU INHALATION SCH ×2 (08:48→21:05)
[2017-10-11] MEDS: IPRATROPIUM-ALBUTEROL 3 ML NEB INHALATION SCH ×4 (08:48→21:04)
[2017-10-11] MEDS: ALPRAZolam 0.5 MG TAB PO PRN ×2 (09:40→20:15)
[2017-10-11 12:08] LABS: Glucose,Whole Blood 126 mg/dL (75-99)
--- NOTE | 2017-10-11 12:59 | P.PN ---
Subjective Progress Note Date: 10/11/17 Principal diagnosis: Acute exacerbation of chronic obstructive pulmonary disease complicated by influenza A infection. Consult dated 10/09/2017 This is a 67-year-old male with a history of underlying COPD. He was at a [facility] up in the [facility] area because he had he recently had influenza. He was treated with Tamiflu for 5 days. Initially got better and then got worse again. He came with complaints of increasing shortness of breath coughing wheezing chest tightness. Coughing up some phlegm. Slight fever and chills. He is feeling better generally but doesn't feel back to baseline. He was seen in the emergency room last night in admitted with a diagnosis of COPD exacerbation and recent influenza infection. In addition, he has a history of hyperlipidemia and hypertension as well as a history of hypothyroidism. This is a patient sitting at the bedside with his next to him. He is on a breathing treatment right now. Does have nasal O2 in place. He does feel a bit better. I did tell him it would take about 3 or 4 days before he would probably be able to be discharged. I do see him in the office for COPD. Progress note dated 10/10/2017 The patient is seen again today in follow-up on the selective care unit. He is awake and alert in no acute distress. He is breathing easier today as compared to yesterday. Still feeling quite weak and fatigued. He is afebrile. Hemodynamically stable. Maintaining good O2 saturations in the mid 90s on 3 L/ m per nasal cannula. White count 10.6. Hemoglobin 13.9. Creatinine 0.50. He is continued on DuoNeb inhalations, Pulmicort and perforomist, IV Solu-Medrol, antibiotics in the form of Levaquin, Influenza A is detected again today. Progress note dated 10/11/2017 The patient is seen again today in follow-up in the selective care unit. He is awake and alert in no acute distress. He is still quite fatigued and weak. Still not back to his baseline. He is breathing easier today as compared to yesterday. Continues with a loose nonproductive cough. He is currently afebrile. Hemodynamically stable. Maintaining O2 saturations in the 90s on room air. He is continued on his Tamiflu. White count 12.2. Hemoglobin 13.4. Creatinine 0.50. Objective - Vital Signs Vital signs: Vital Signs Temp 97.4 F L 10/11/17 12:00 Pulse 90 10/11/17 12:00 Resp 16 10/11/17 12:00 BP 163/77 10/11/17 12:00 Pulse Ox 94 L 10/11/17 12:00 Intake & Output 10/10/17 10/11/17 10/11/17 18:59 06:59 18:59 Intake Total 420 1000 480 Output Total 225 500 Balance 195 1000 -20 Weight 84.5 kg Intake: IV 1000 Sodium Chloride 0.9% 1, 1000 000 ml @ 150 mls/hr IV . Q6H40M [facility] Rx#:[id number] Oral 420 480 Output: Urine 225 500 Other: Voiding Method Urinal # Voids 2 - Exam GENERAL EXAM: Alert, weak, comfortable in no apparent distress. HEAD: Normocephalic. EYES: Normal reaction of pupils, equal size. NOSE: Clear with pink turbinates. THROAT: No erythema or exudates. NECK: No masses, no JVD. CHEST: No chest wall deformity. LUNGS: Equal air entry with bilateral wheezing, diminished throughout. CVS: S1 and S2 normal with no audible murmur, regular rhythm. ABDOMEN: No hepatosplenomegaly, normal bowel sounds, no guarding or rigidity. SPINE: No scoliosis or deformity SKIN: No rashes CENTRAL NERVOUS SYSTEM: No focal deficits, tone is normal in all 4 extremities. EXTREMITIES: There is no peripheral edema. No clubbing, no cyanosis. Peripheral pulses are intact. - Labs CBC & Chem 7: 10/11/17 05:31 10/11/17 05:31 Labs: Abnormal Lab Results - Last 24 Hours (Table) 10/10/17 10/10/17 10/11/17 Range/Units 16:43 20:43 05:31 WBC 12.2 H (3.8-10.6) k/uL Neutrophils # 10.8 H (1.3-7.7) k/uL Lymphocytes # 0.6 L (1.0-4.8) k/uL Carbon Dioxide (22-30) mmol/L Creatinine (0.66-1.25) mg/dL Glucose (74-99) mg/dL POC Glucose (mg/dL) 130 H 118 H (75-99) mg/dL 10/11/17 10/11/17 10/11/17 Range/Units 05:31 06:46 12:07 WBC (3.8-10.6) k/uL Neutrophils # (1.3-7.7) k/uL Lymphocytes # (1.0-4.8) k/uL Carbon Dioxide 32 H (22-30) mmol/L Creatinine 0.50 L (0.66-1.25) mg/dL Glucose 124 H (74-99) mg/dL POC Glucose (mg/dL) 113 H 126 H (75-99) mg/dL Assessment and Plan Assessment: Assessment COPD exacerbation complicated by purulent tracheobronchitis Recent influenza infection, recurrent or continued influenza A infection. Hyperlipidemia Hypertension Hypothyroidism Previous heavy tobacco use History of anxiety Coronary artery disease with stent placement Plan: The patient was seen and evaluated by Dr. Stark. He is improved today as compared to yesterday but still not back to his baseline. He remains quite fatigued and weak. We'll continue with his current medications. Continue Tamiflu. ID is on the case as well. He remains in droplet precautions. We'll continue to follow and make further recommendations based on his clinical status. I, the cosigning physician, performed a history & physical examination of the patient. Lungs sounds have bilateral end expiratory wheeze. Diminished. Maintaining good O2 saturations in the 90s on room air. I discussed the assessment and plan of care with my nurse practitioner, Paradise Luo. I attest to the above note as dictated by her.
[2017-10-11 17:00] LABS: Glucose,Whole Blood 174 mg/dL (75-99)
[2017-10-11] MEDS: LEVOFLOXACIN 500 MG TAB PO SCH (17:26)
--- NOTE | 2017-10-11 17:37 | P.PN ---
Subjective 67-year-old gentleman admitted with acute COPD exacerbation, acute purulent tracheobronchitis, recent influenza A, possible sepsis and multiple other medical issues.Lactic Acid worsening, maintained on IV fluid hydration. Evaluated by pulmonary and infectious disease with recommendations noted. Maintained on nebulized bronchodilators, steroids and antibiotics. Currently sitting up at bedside, hunched over bedside table significantly labored breathing-awaiting nebulized treatment. Denies chest pain. 10/10/2017 maintained on nebulized bronchodilators, steroids, Levaquin, Tamiflu , with breathing effort significantly improved today. Afebrile. Maintaining O2 sats in the mid 90s on 3 L nasal cannula. 10/11/2017 No overnight events Objective - Vital Signs Vital signs: Vital Signs Temp 97.4 F L 10/11/17 15:39 Pulse 104 H 10/11/17 16:37 Resp 18 10/11/17 16:00 BP 153/73 10/11/17 15:39 Pulse Ox 94 L 10/11/17 15:39 Intake & Output 10/10/17 10/11/17 10/11/17 18:59 06:59 18:59 Intake Total 420 1000 480 Output Total 225 500 Balance 195 1000 -20 Weight 84.5 kg Intake: IV 1000 Sodium Chloride 0.9% 1, 1000 000 ml @ 150 mls/hr IV . Q6H40M [facility] Rx#:[id number] Oral 420 480 Output: Urine 225 500 Other: Voiding Method Urinal # Voids 2 - Exam GENERAL: Sitting up at bedside, no acute distress HEENT: Conjunctivae normal. eyes normal. Oral mucosa moist NECK: No JVD. No thyroid enlargement. No LNs CARDIOVASCULAR: S1, S2 muffled. No murmur RESPIRATION: Breath sounds diminished in the bases. No rhonchi or crackles. Inspiratory and prolonged expiratory wheezing ABDOMEN: Soft, nontender . No guarding. no masses palpable.Bowel sounds heard. LEGS: No edema. no swelling PSYCHIATRY: Alert and oriented -3, mood and affect normal. NERVOUS SYSTEM: Cranial N 2-12 grossly normal. Moves all 4 limbs. Diffuse weakness No focal deficits. Skin: no ulcer no rash Joints: No active swelling. No inflammation. Lymphatic system. No LN neck axilla or groin. - Labs CBC & Chem 7: 10/11/17 05:31 10/11/17 05:31 Labs: Abnormal Lab Results - Last 24 Hours (Table) 10/10/17 10/11/17 10/11/17 Range/Units 20:43 05:31 05:31 WBC 12.2 H (3.8-10.6) k/uL Neutrophils # 10.8 H (1.3-7.7) k/uL Lymphocytes # 0.6 L (1.0-4.8) k/uL Carbon Dioxide 32 H (22-30) mmol/L Creatinine 0.50 L (0.66-1.25) mg/dL Glucose 124 H (74-99) mg/dL POC Glucose (mg/dL) 118 H (75-99) mg/dL 10/11/17 10/11/17 10/11/17 Range/Units 06:46 12:07 16:46 WBC (3.8-10.6) k/uL Neutrophils # (1.3-7.7) k/uL Lymphocytes # (1.0-4.8) k/uL Carbon Dioxide (22-30) mmol/L Creatinine (0.66-1.25) mg/dL Glucose (74-99) mg/dL POC Glucose (mg/dL) 113 H 126 H 174 H (75-99) mg/dL Assessment and Plan Plan: 1. Acute COPD exacerbation with acute purulent tracheobronchitis with sepsis 2. influenza A 3. Leukocytes 4. COPD 5. Hypertension 6. Remote history of nicotine dependence 7. History of anxiety 8. CAD with history of stent placement 9. Hypothyroidism Plan: Continue on current medication regime, Tamiflu, monitoring and symptomatic treatment. Maintain antibiotics, nebulized bronchodilators and steroids. IV fluid hydration. Increase ambulation as tolerated.
[2017-10-11] MEDS: ATORVASTATIN 40 MG TAB PO SCH (20:08)
[2017-10-11 21:04] LABS: Glucose,Whole Blood 91 mg/dL (75-99)
--- NOTE | 2017-10-11 22:07 | P.PN ---
Subjective Progress Note Date: 10/11/17 Principal diagnosis: Shortness of breath This is a 67-year-old male with a past medical history of COPD and follows with Dr. Coe. Patient was hospitalized in July at [facility] in [facility] for COPD exacerbation. He was hospitalized again within the past week for COPD exacerbation and tested positive for influenza A on October 04. Patient was on Tamiflu along with antibiotics while hospitalized and was discharged on Friday with doxycycline and continued on Tamiflu. Patient states that when he left the hospital he was still having trouble with breathing but no more fevers. He has a cough that is mostly nonproductive. His shortness of breath continued to worsen and he came into [facility] emergency center on Friday and was started on Levaquin, Solu-Medrol , DuoNeb treatments, Pulmicort and Perforomist and admitted to the selective care unit. Patient is followed by Dr. Stark. Patient did receive a dose of both ceftriaxone and azithromycin in the emergency center. Patient is no longer on Tamiflu. He is and droplet isolation. On presentation, patient was afebrile, white count was 17.2 which is improved to 10.6. Creatinine 0.65, d- dimer 0.7, lactic acid initially 3.3 and now 1.9. Troponin 0.012. Urinalysis was clear with nitrate and leukoesterase negative. Chest x-ray showed no acute process. There is a C. diff testing that has not been collected but patient states he presented with diarrhea but this has resolved he has had none since. He has had decreased appetite. No nausea or vomiting. At this time, patient states that his breathing continues to be difficult but improved since he arrived. Patient was on BiPAP during the night. He denies any history of obstructive sleep apnea. 10/11/2017 reveals the patient be feeling slightly better. He's having no further fever. He is not short of breath sitting and conversing which is improved from yesterday when he was short of breath at rest. Denies other new symptoms. No significant discomfort in his chest. Objective - Vital Signs Vital signs: Vital Signs Temp 97.4 F L 10/11/17 15:39 Pulse 100 10/11/17 21:05 Resp 18 10/11/17 16:00 BP 153/73 10/11/17 15:39 Pulse Ox 94 L 10/11/17 15:39 Intake & Output 10/11/17 10/11/17 10/12/17 06:59 18:59 06:59 Intake Total 1000 720 Output Total 500 Balance 1000 220 Weight 84.5 kg Intake: IV 1000 Sodium Chloride 0.9% 1, 1000 000 ml @ 150 mls/hr IV . Q6H40M [facility] Rx#:[id number] Oral 720 Output: Urine 500 Other: Voiding Method Urinal # Voids 2 - Exam en: This is a 67-year-old male. He is sitting in a tripod position and appears to have mild respiratory distress with tachypnea. HEENT: Head is atraumatic, normocephalic. Pupils equal, round. Sclerae is anicteric. Conjunctiva pink. NECK: Supple. No JVD. No lymphadenopathy. No thyromegaly. LUNGS: Diminished breath sounds throughout with inspiratory and expiratory rhonchi and expiratory wheezes. Mild accessory muscle usage and intercostal retractions. Positive mild tachypnea HEART: Regular rate and rhythm. No murmur. ABDOMEN: Soft. Bowel sounds are present. No masses. No tenderness. EXTREMITIES: 1+ edema to the right foot, no pedal edema to the left. Dorsalis pedis +2 bilaterally. No calf tenderness. NEUROLOGICAL: Patient is awake, alert and oriented x3. - Labs CBC & Chem 7: 10/11/17 05:31 10/11/17 05:31 Labs: Abnormal Lab Results - Last 24 Hours (Table) 10/11/17 10/11/17 10/11/17 Range/Units 05:31 05:31 06:46 WBC 12.2 H (3.8-10.6) k/uL Neutrophils # 10.8 H (1.3-7.7) k/uL Lymphocytes # 0.6 L (1.0-4.8) k/uL Carbon Dioxide 32 H (22-30) mmol/L Creatinine 0.50 L (0.66-1.25) mg/dL Glucose 124 H (74-99) mg/dL POC Glucose (mg/dL) 113 H (75-99) mg/dL 10/11/17 10/11/17 Range/Units 12:07 16:46 WBC (3.8-10.6) k/uL Neutrophils # (1.3-7.7) k/uL Lymphocytes # (1.0-4.8) k/uL Carbon Dioxide (22-30) mmol/L Creatinine (0.66-1.25) mg/dL Glucose (74-99) mg/dL POC Glucose (mg/dL) 126 H 174 H (75-99) mg/dL Laboratory Results WBC 12.2 k/uL (3.8-10.6) H 10/11/17 05:31 RBC 4.59 m/uL (4.30-5.90) 10/11/17 05:31 Hgb 13.4 gm/dL (13.0-17.5) 10/11/17 05:31 Hct 39.9 % (39.0-53.0) 10/11/17 05:31 MCV 87.0 fL (80.0-100.0) 10/11/17 05:31 MCH 29.3 pg (25.0-35.0) 10/11/17 05:31 MCHC 33.6 g/dL (31.0-37.0) 10/11/17 05:31 RDW 13.3 % (11.5-15.5) 10/11/17 05:31 Plt Count 211 k/uL (150-450) 10/11/17 05:31 Neutrophils % 89 % 10/11/17 05:31 Lymphocytes % 5 % 10/11/17 05:31 Monocytes % 5 % 10/11/17 05:31 Eosinophils % 0 % 10/11/17 05:31 Basophils % 0 % 10/11/17 05:31 Neutrophils # 10.8 k/uL (1.3-7.7) H 10/11/17 05:31 Lymphocytes # 0.6 k/uL (1.0-4.8) L 10/11/17 05:31 Monocytes # 0.6 k/uL (0-1.0) 10/11/17 05:31 Eosinophils # 0.0 k/uL (0-0.7) 10/11/17 05:31 Basophils # 0.0 k/uL (0-0.2) 10/11/17 05:31 PT 10.2 sec (9.0-12.0) 10/08/17 21:15 INR 1.0 (<1.2) 10/08/17 21:15 APTT 20.1 sec (22.0-30.0) L 10/08/17 21:15 D-Dimer 0.70 mg/L FEU (<0.60) H 10/08/17 21:15 Sodium 145 mmol/L (137-145) 10/11/17 05:31 Potassium 3.9 mmol/L (3.5-5.1) 10/11/17 05:31 Chloride 106 mmol/L (98-107) 10/11/17 05:31 Carbon Dioxide 32 mmol/L (22-30) H 10/11/17 05:31 Anion Gap 7 mmol/L 10/11/17 05:31 BUN 18 mg/dL (9-20) 10/11/17 05:31 Creatinine 0.50 mg/dL (0.66-1.25) L 10/11/17 05:31 Est GFR (CKD-EPI)AfAm >90 (>60 ml/min/1.73 sqM) 10/11/17 05:31 Est GFR (CKD-EPI)NonAf >90 (>60 ml/min/1.73 sqM) 10/11/17 05:31 Glucose 124 mg/dL (74-99) H 10/11/17 05:31 POC Glucose (mg/dL) 91 mg/dL (75-99) 10/11/17 21:02 POC Glu Specimen Transporter ID Lucy Perez 10/11/17 21:[address] Glu mg/dL 117 10/09/17 01:10 Hemoglobin A1c 5.7 % (4.0-6.0) 10/09/17 01:10 Lactic Ac Sepsis Rflx Y 10/10/17 00:52 Plasma Lactic Acid Sonny 1.9 mmol/L (0.7-2.0) 10/10/17 04:08 Calcium 8.8 mg/dL (8.4-10.2) 10/11/17 05:31 Magnesium 2.3 mg/dL (1.6-2.3) 10/08/17 21:15 Total Bilirubin 0.3 mg/dL (0.2-1.3) 10/08/17 21:15 AST 30 U/L (17-59) 10/08/17 21:15 ALT 35 U/L (21-72) 10/08/17 21:15 Alkaline Phosphatase 97 U/L (38-126) 10/08/17 21:15 Total Creatine Kinase 70 U/L (55-170) 10/08/17 21:15 CK-MB (CK-2) 2.2 ng/mL (0.0-2.4) 10/08/17 21:15 CK-MB (CK-2) Rel Index 3.1 10/08/17 21:15 Troponin I <0.012 ng/mL (0.000-0.034) 10/08/17 21:15 NT-Pro-B Natriuret Pep 240 pg/mL 10/08/17 21:15 Total Protein 7.0 g/dL (6.3-8.2) 10/08/17 21:15 Albumin 3.9 g/dL (3.5-5.0) 10/08/17 21:15 Urine Color Yellow 10/09/17 04:50 Urine Appearance Clear (Clear) 10/09/17 04:50 Urine pH 6.0 (5.0-8.0) 10/09/17 04:50 Ur Specific [place] 1.018 (1.001-1.035) 10/09/17 04:50 Urine Protein Negative (Negative) 10/09/17 04:50 Urine Glucose (UA) Negative (Negative) 10/09/17 04:50 Urine Ketones Negative (Negative) 10/09/17 04:50 Urine Blood Negative (Negative) 10/09/17 04:50 Urine Nitrite Negative (Negative) 10/09/17 04:50 Urine Bilirubin Negative (Negative) 10/09/17 04:50 Urine Urobilinogen <2.0 mg/dL (<2.0) 10/09/17 04:50 Ur Leukocyte Esterase Negative (Negative) 10/09/17 04:50 Influenza Type A RNA Detected (Not Detectd) H 10/10/17 10:13 Influenza Type B (PCR) Not Detected (Not Detectd) 10/10/17 10:13 Assessment and Plan (1) Influenza A (H1N1) Narrative/Plan: 67year old male with a history of oxygen dependent COPD presented to his local hospital with severe shortness of breath, was found to have influenza and was treated with Tamiflu for 10 doses then discharged to home, within a short time he became much more short of breath and presented to the ER at [facility], admitted with exacerbation of COPD. At the time of the consult a stat PCR for Influenza was done and is positive. It appears that the patient did not have a complete response to the traditional course of therapy, as per CDC if needed the course of treatment can be extended as needed to allow resolution of the infection. Tamiflu is continued with the treatment of the COPD. Noninvasive ventilatory support will be utilized as needed. 10/11/2017 reveals the patient to be improved from yesterday. He has not had shortness of breath at rest like he was yesterday. But does develop significant dyspnea with exertion. He will continue with his Tamiflu, respiratory treatments, steroid therapy and oxygen supplementation. Pulmonary critical care is following. His chest x-ray is negative and does not appear to have significant viral pneumonitis. If he continues to have significant shortness of breath benefit from CT of his chest to evaluate for disease process not evident by plain chest x-ray. Current Visit: Yes Status: Acute Code(s): J10.1 - FLU DUE TO OTH IDENT INFLUENZA VIRUS W OTH RESP MANIFEST SNOMED Code(s): 634008785 (2) Acute exacerbation of chronic obstructive airways disease Current Visit: Yes Status: Acute Code(s): J44.1 - CHRONIC OBSTRUCTIVE PULMONARY DISEASE W (ACUTE) EXACERBATION SNOMED Code(s): 397431275
[2017-10-12] MEDS: IPRATROPIUM-ALBUTEROL 3 ML NEB INHALATION PRN (04:11)
[2017-10-12] MEDS: SODIUM CHLORIDE 0.9% 1,000 ML IV SCH ×4 (06:12→23:25)
[2017-10-12] MEDS: LEVOTHYROXINE 100 MCG TAB PO SCH (06:13)
[2017-10-12] MEDS: methylPREDNISolone SOD SUCCI 125 MG/2 ML VIAL IV SCH ×4 (06:13→23:24)
[2017-10-12 07:31] LABS: Glucose,Whole Blood 119 mg/dL (75-99)
[2017-10-12] MEDS: INSULIN ASPART 100 UNIT/ML 1 ML 10 ML VIAL SQ SCH ×4 (07:42→20:36)
[2017-10-12 07:51] LABS: Basophils % (A) 0 %; Eosinophils % (A) 0 %; HCT 38.8 % (39.0-53.0); HGB 12.9 gm/dL (13.0-17.5); Lymphocytes # (A) 0.6 k/uL (1.0-4.8); Lymphocytes % (A) 5 %; MCH 29.2 pg (25.0-35.0); MCHC 33.2 g/dL (31.0-37.0); MCV 87.9 fL (80.0-100.0); Mean Platelet Volume 6.4; Monocytes # (A) 0.5 k/uL (0-1.0); Monocytes % (A) 5 %; Neutrophils # (A) 10.8 k/uL (1.3-7.7); Neutrophils % (A) 90 %; Platelet Count 268 k/uL (150-450); RBC 4.41 m/uL (4.30-5.90); RDW 13.4 % (11.5-15.5)
[2017-10-12] MEDS: FAMOTIDINE 20 MG TAB PO SCH ×2 (08:03→20:37)
[2017-10-12] MEDS: guaiFENesin 600 MG TABLET.ER PO SCH ×2 (08:03→20:37)
[2017-10-12] MEDS: OSELTAMIVIR 75 MG CAP PO SCH ×2 (08:03→20:38)
[2017-10-12] MEDS: ENOXAPARIN 40 MG/0.4 ML SYRINGE SQ SCH (08:04)
[2017-10-12] MEDS: DILTIAZEM CD 180 MG CAP.ER.24H PO SCH (08:04)
[2017-10-12] MEDS: MULTIVITAMINS, THERA 1 EACH TAB PO SCH (08:04)
[2017-10-12] MEDS: ASPIRIN 81 MG PO SCH (08:04)
[2017-10-12 08:05] LABS: Anion Gap 7 mmol/L; Blood Urea Nitrogen 20 mg/dL (9-20); Calcium 8.6 mg/dL (8.4-10.2); Carbon Dioxide 34 mmol/L (22-30); Chloride 102 mmol/L (98-107); Glucose 127 mg/dL (74-99); Potassium 3.8 mmol/L (3.5-5.1); Sodium 143 mmol/L (137-145)
[2017-10-12] MEDS: ALPRAZolam 0.5 MG TAB PO PRN ×2 (08:41→20:37)
[2017-10-12] MEDS: BUDESONIDE 1 MG/2 ML NEBU INHALATION SCH (08:52)
[2017-10-12] MEDS: IPRATROPIUM-ALBUTEROL 3 ML NEB INHALATION SCH ×4 (08:52→19:37)
[2017-10-12] MEDS: FORMOTEROL FUMARATE 20 MCG/2 ML NEBU INHALATION SCH (08:52)
[2017-10-12] MEDS: SYMBICORT 160-4.5 MCG INHALER INHALATION SCH ×2 (09:00→19:37)
--- NOTE | 2017-10-12 09:32 | P.PN ---
Subjective Progress Note Date: 10/12/17 Principal diagnosis: Shortness of breath Progress note dated 10/12/2017 67-year-old male admitted with a diagnosis of COPD exacerbation complicated by purulent tracheobronchitis and recurrent influenza A infection. The patient has a history of hyperlipidemia, hypertension, hypothyroidism, previous heavy tobacco use history of anxiety and CAD with previous stent placement. The patient continues to improve. Feeling better. The patient/short of breath. I thought he could probably go home either today or tomorrow. I'll leave that up to the primary service. He was started back on Tamiflu as per infectious disease. Denies any fever or chills. Coughing. Not producing any phlegm. No nausea vomiting or diarrhea. No chest pain or chest discomfort. Objective - Vital Signs Vital signs: Vital Signs Temp 96.9 F L 10/12/17 07:00 Pulse 96 10/12/17 09:09 Resp 18 10/12/17 08:00 BP 150/75 10/12/17 07:00 Pulse Ox 91 L 10/12/17 07:00 Intake & Output 10/11/17 10/12/17 10/12/17 18:59 06:59 18:59 Intake Total 720 900 480 Output Total 500 600 Balance 220 900 -120 Weight 84.5 kg Intake: Intake, IV Titration 900 Amount Sodium Chloride 0.9% 1, 900 000 ml @ 150 mls/hr IV . Q6H40M [facility] Rx#:[id number] Oral 720 480 Output: Urine 500 600 Other: Voiding Method Urinal Urinal # Voids 1 - Exam No acute distress, oriented 3. Nasal O2 in place. HEENT examination is grossly unremarkable. Mucous membranes are moist. No oral lesions. Neck supple. Full range of motion. No adenopathy thyromegaly or neck vein distention. Cardiovascular examination reveals regular rhythm rate. S1-S2 normal. No S3 or S4. No discernible murmur noted. Lungs reveal diminished breath sounds. Breath sounds are equal bilaterally. There is a few scattered expiratory rhonchi. Some mild high-pitched wheezes noted. No crackles. Breath sounds are diminished throughout. Abdomen soft bowel sounds are heard. No masses or tenderness. Extremities are intact. No cyanosis clubbing or edema. Skin is without rash or lesion. Neurologic examination is brief but nonfocal. - Labs CBC & Chem 7: 10/12/17 07:13 10/12/17 07:13 Labs: Abnormal Lab Results - Last 24 Hours (Table) 10/11/17 10/11/17 10/12/17 Range/Units 12:07 16:46 07:13 WBC 12.0 H (3.8-10.6) k/uL Hgb 12.9 L (13.0-17.5) gm/dL Hct 38.8 L (39.0-53.0) % Neutrophils # 10.8 H (1.3-7.7) k/uL Lymphocytes # 0.6 L (1.0-4.8) k/uL Carbon Dioxide (22-30) mmol/L Creatinine (0.66-1.25) mg/dL Glucose (74-99) mg/dL POC Glucose (mg/dL) 126 H 174 H (75-99) mg/dL 10/12/17 10/12/17 Range/Units 07:13 07:24 WBC (3.8-10.6) k/uL Hgb (13.0-17.5) gm/dL Hct (39.0-53.0) % Neutrophils # (1.3-7.7) k/uL Lymphocytes # (1.0-4.8) k/uL Carbon Dioxide 34 H (22-30) mmol/L Creatinine 0.59 L (0.66-1.25) mg/dL Glucose 127 H (74-99) mg/dL POC Glucose (mg/dL) 119 H (75-99) mg/dL Assessment and Plan Assessment: Assessment COPD exacerbation complicated by purulent tracheobronchitis Recent and recurrent influenza A infection Hyperlipidemia Hypertension Hypothyroidism Previous heavy tobacco use History of anxiety Coronary artery disease with stent placement Plan: Plan dated 10/09/2017 The patient's medications and labs will be reviewed. The patient was placed on DuoNeb's 4 times a day and when necessary. We'll also add Pulmicort 1 mg mixed with formoterol twice a day. The patient will get systemic corticosteroids and some antibiotics. Additional recommendations and suggestions are forthcoming. Prognosis is guarded. We'll continue to follow closely. X-rays labs and medications are all reviewed and adjusted accordingly. Plan dated 10/12/2017 The patient is doing better. Much less short of breath. He continues on [facility] systemic corticosteroids and antibiotics and Tamiflu. Hopefully discharge in next 24 hours or so. He could probably go home today if it's okay with the primary service. He should go home to finish up his Tamiflu as per ID. He go home on an oral antibiotic prednisone with a burst and taper and his other breathing medications. The prednisone should be at 40 mg a day for 4 days dropping by 10 mg every fourth day. Time with Patient: Less than 30
--- NOTE | 2017-10-12 10:48 | P.PN ---
Subjective 67-year-old gentleman admitted with acute COPD exacerbation, acute purulent tracheobronchitis, recent influenza A, possible sepsis and multiple other medical issues.Lactic Acid worsening, maintained on IV fluid hydration. Evaluated by pulmonary and infectious disease with recommendations noted. Maintained on nebulized bronchodilators, steroids and antibiotics. Currently sitting up at bedside, hunched over bedside table significantly labored breathing-awaiting nebulized treatment. Denies chest pain. 10/10/2017 maintained on nebulized bronchodilators, steroids, Levaquin, Tamiflu , with breathing effort significantly improved today. Afebrile. Maintaining O2 sats in the mid 90s on 3 L nasal cannula. 10/11/2017 No overnight events 10/12/2017 Patient is still significantly short of breath no much air movement on the lung exam Constitutional: Denied any fatigue denied any fever. Cardio vascular: denied any chest pain, palpitations Gastrointestinal denied any nausea vomiting Pulmonary: As mentioned in HPI Neurologic denied any new focal deficits Objective - Vital Signs Vital signs: Vital Signs Temp 96.9 F L 10/12/17 07:00 Pulse 96 10/12/17 09:09 Resp 18 10/12/17 08:00 BP 150/75 10/12/17 07:00 Pulse Ox 91 L 10/12/17 07:00 Intake & Output 10/11/17 10/12/17 10/12/17 18:59 06:59 18:59 Intake Total 720 900 480 Output Total 500 600 Balance 220 900 -120 Weight 84.5 kg Intake: Intake, IV Titration 900 Amount Sodium Chloride 0.9% 1, 900 000 ml @ 150 mls/hr IV . Q6H40M [facility] Rx#:[id number] Oral 720 480 Output: Urine 500 600 Other: Voiding Method Urinal Urinal # Voids 1 - Exam GENERAL: Sitting up at bedside, no acute distress HEENT: Conjunctivae normal. eyes normal. Oral mucosa moist NECK: No JVD. No thyroid enlargement. No LNs CARDIOVASCULAR: S1, S2 muffled. No murmur RESPIRATION: Breath sounds diminished in the bases. No rhonchi or crackles. Inspiratory and prolonged expiratory wheezing ABDOMEN: Soft, nontender . No guarding. no masses palpable.Bowel sounds heard. LEGS: No edema. no swelling PSYCHIATRY: Alert and oriented -3, mood and affect normal. NERVOUS SYSTEM: Cranial N 2-12 grossly normal. Moves all 4 limbs. Diffuse weakness No focal deficits. Skin: no ulcer no rash Joints: No active swelling. No inflammation. Lymphatic system. No LN neck axilla or groin. - Labs CBC & Chem 7: 10/12/17 07:13 10/12/17 07:13 Labs: Abnormal Lab Results - Last 24 Hours (Table) 10/11/17 10/11/17 10/12/17 Range/Units 12:07 16:46 07:13 WBC 12.0 H (3.8-10.6) k/uL Hgb 12.9 L (13.0-17.5) gm/dL Hct 38.8 L (39.0-53.0) % Neutrophils # 10.8 H (1.3-7.7) k/uL Lymphocytes # 0.6 L (1.0-4.8) k/uL Carbon Dioxide (22-30) mmol/L Creatinine (0.66-1.25) mg/dL Glucose (74-99) mg/dL POC Glucose (mg/dL) 126 H 174 H (75-99) mg/dL 10/12/17 10/12/17 Range/Units 07:13 07:24 WBC (3.8-10.6) k/uL Hgb (13.0-17.5) gm/dL Hct (39.0-53.0) % Neutrophils # (1.3-7.7) k/uL Lymphocytes # (1.0-4.8) k/uL Carbon Dioxide 34 H (22-30) mmol/L Creatinine 0.59 L (0.66-1.25) mg/dL Glucose 127 H (74-99) mg/dL POC Glucose (mg/dL) 119 H (75-99) mg/dL Assessment and Plan Plan: 1. Acute COPD exacerbation with acute purulent tracheobronchitis with sepsis 2. influenza A 3. Leukocytes 4. COPD 5. Hypertension 6. Remote history of nicotine dependence 7. History of anxiety 8. CAD with history of stent placement 9. Hypothyroidism Plan: Continue on current medication regime, Tamiflu, monitoring and symptomatic treatment. Maintain antibiotics, nebulized bronchodilators and steroids. IV fluid hydration. Increase ambulation as tolerated.
[2017-10-12 11:19] LABS: Glucose,Whole Blood 107 mg/dL (75-99)
[2017-10-12] MEDS: LEVOFLOXACIN 500 MG TAB PO SCH (17:07)
[2017-10-12 17:09] LABS: Glucose,Whole Blood 140 mg/dL (75-99)
[2017-10-12 20:03] LABS: Glucose,Whole Blood 164 mg/dL (75-99)
[2017-10-12] MEDS: ATORVASTATIN 40 MG TAB PO SCH (20:37)
[2017-10-13] MEDS: IPRATROPIUM-ALBUTEROL 3 ML NEB INHALATION PRN (02:58)
[2017-10-13] MEDS: LEVOTHYROXINE 100 MCG TAB PO SCH (06:14)
[2017-10-13] MEDS: methylPREDNISolone SOD SUCCI 125 MG/2 ML VIAL IV SCH (06:14)
[2017-10-13 06:59] LABS: Glucose,Whole Blood 116 mg/dL (75-99)
[2017-10-13] MEDS: IPRATROPIUM-ALBUTEROL 3 ML NEB INHALATION SCH ×4 (07:16→19:35)
[2017-10-13] MEDS: SYMBICORT 160-4.5 MCG INHALER INHALATION SCH ×2 (07:16→19:35)
[2017-10-13] MEDS: INSULIN ASPART 100 UNIT/ML 1 ML 10 ML VIAL SQ SCH ×4 (07:36→20:59)
[2017-10-13] MEDS: guaiFENesin 600 MG TABLET.ER PO SCH ×2 (08:13→20:57)
[2017-10-13] MEDS: FAMOTIDINE 20 MG TAB PO SCH ×2 (08:13→20:57)
[2017-10-13] MEDS: OSELTAMIVIR 75 MG CAP PO SCH ×2 (08:13→20:57)
[2017-10-13] MEDS: DILTIAZEM CD 180 MG CAP.ER.24H PO SCH (08:14)
[2017-10-13] MEDS: MULTIVITAMINS, THERA 1 EACH TAB PO SCH (08:14)
[2017-10-13] MEDS: ENOXAPARIN 40 MG/0.4 ML SYRINGE SQ SCH (08:14)
[2017-10-13] MEDS: ASPIRIN 81 MG PO SCH (08:14)
[2017-10-13 08:23] LABS: Anion Gap 8 mmol/L; Blood Urea Nitrogen 21 mg/dL (9-20); Calcium 8.8 mg/dL (8.4-10.2); Carbon Dioxide 36 mmol/L (22-30); Chloride 100 mmol/L (98-107); Glucose 124 mg/dL (74-99); Potassium 3.8 mmol/L (3.5-5.1); Sodium 144 mmol/L (137-145)
[2017-10-13 08:31] LABS: Basophils # (A) 0.1 k/uL (0-0.2); Basophils % (A) 0 %; Eosinophils % (A) 0 %; HGB 14.6 gm/dL (13.0-17.5); Lymphocytes # (A) 0.6 k/uL (1.0-4.8); Lymphocytes % (A) 5 %; MCH 29.5 pg (25.0-35.0); MCV 86.7 fL (80.0-100.0); Mean Platelet Volume 6.3; Monocytes # (A) 0.6 k/uL (0-1.0); Monocytes % (A) 5 %; Neutrophils # (A) 10.6 k/uL (1.3-7.7); Neutrophils % (A) 89 %; Platelet Count 288 k/uL (150-450); RBC 4.96 m/uL (4.30-5.90); RDW 13.5 % (11.5-15.5)
[2017-10-13 11:13] LABS: Glucose,Whole Blood 172 mg/dL (75-99)
[2017-10-13] MEDS: SODIUM CHLORIDE 0.9% 1,000 ML IV SCH ×2 (12:28→12:29)
--- NOTE | 2017-10-13 15:50 | P.PN ---
Subjective Progress Note Date: 10/13/17 Principal diagnosis: COPD exacerbation complicated by. Tracheobronchitis, influenza A infection Progress note dated 10/12/2017 67-year-old male admitted with a diagnosis of COPD exacerbation complicated by purulent tracheobronchitis and recurrent influenza A infection. The patient has a history of hyperlipidemia, hypertension, hypothyroidism, previous heavy tobacco use history of anxiety and CAD with previous stent placement. The patient continues to improve. Feeling better. The patient/short of breath. I thought he could probably go home either today or tomorrow. I'll leave that up to the primary service. He was started back on Tamiflu as per infectious disease. Denies any fever or chills. Coughing. Not producing any phlegm. No nausea vomiting or diarrhea. No chest pain or chest discomfort. On 10/13/2017 patient seen in follow-up. He states he is still very dyspneic with any activity, he is only been ambulating to the bathroom couple times a day , Ventolin rescue the time the patient states in the tripod position over his bedside table. Lung sounds are very diminished bilaterally, with end expiratory wheezing. So he is improving, he feels very fatigued and worn out. His been afebrile, hemodynamically stable, he is on 2 L per nasal cannula with O2 sat at 92%. Today's labs were reviewed, WBCs 12.0, CO2 36, BUN is 21, and creatinine 0.60. Patient is not bringing up any sputum, denies any fever or chills, denies any chest pain. Continue with current plan of care. Objective - Vital Signs Vital signs: Vital Signs Temp 97.0 F L 10/13/17 14:49 Pulse 96 10/13/17 14:49 Resp 16 10/13/17 14:49 BP 145/68 10/13/17 14:49 Pulse Ox 92 L 10/13/17 14:49 Intake & Output 10/12/17 10/13/17 10/13/17 18:59 06:59 18:59 Intake Total 1740 160 Output Total 608 Balance 1132 160 Intake: IV 160 Sodium Chloride 0.9% 1, 160 000 ml @ 20 mls/hr IV . Q24H [facility] Rx#:[id number] Oral 1740 Output: Urine 608 Other: Voiding Method Urinal Urinal Urinal # Voids 1 2 - Exam No acute distress, oriented 3. Nasal O2 in place. HEENT examination is grossly unremarkable. Mucous membranes are moist. No oral lesions. Neck supple. Full range of motion. No adenopathy thyromegaly or neck vein distention. Cardiovascular examination reveals regular rhythm rate. S1-S2 normal. No S3 or S4. No discernible murmur noted. Lungs reveal diminished breath sounds. There is a few scattered expiratory rhonchi. No crackles. Breath sounds are diminished throughout. Abdomen soft bowel sounds are heard. No masses or tenderness. Extremities are intact. No cyanosis clubbing or edema. Skin is without rash or lesion. Neurologic examination is brief but nonfocal. - Labs CBC & Chem 7: 10/13/17 07:47 10/13/17 07:47 Labs: Abnormal Lab Results - Last 24 Hours (Table) 10/12/17 10/12/17 10/13/17 Range/Units 17:07 20:01 06:57 WBC (3.8-10.6) k/uL Neutrophils # (1.3-7.7) k/uL Lymphocytes # (1.0-4.8) k/uL Carbon Dioxide (22-30) mmol/L BUN (9-20) mg/dL Creatinine (0.66-1.25) mg/dL Glucose (74-99) mg/dL POC Glucose (mg/dL) 140 H 164 H 116 H (75-99) mg/dL 10/13/17 10/13/17 10/13/17 Range/Units 07:47 07:47 11:11 WBC 12.0 H (3.8-10.6) k/uL Neutrophils # 10.6 H (1.3-7.7) k/uL Lymphocytes # 0.6 L (1.0-4.8) k/uL Carbon Dioxide 36 H (22-30) mmol/L BUN 21 H (9-20) mg/dL Creatinine 0.60 L (0.66-1.25) mg/dL Glucose 124 H (74-99) mg/dL POC Glucose (mg/dL) 172 H (75-99) mg/dL Assessment and Plan Plan: Assessment: COPD exacerbation complicated by purulent tracheobronchitis Recent and recurrent influenza A infection Hyperlipidemia Hypertension Hypothyroidism Previous heavy tobacco use History of anxiety Coronary artery disease with stent placement Plan: Continue current antibiotic coverage, continue Tamiflu, Levaquin, nebulized treatments and Solu-Medrol. Increase activity as tolerated, patient is complaining of being generally weak, and remains dyspneic with any exertion. Denies current plan of treatment. I performed a history & physical examination of the patient and discussed their management with my nurse practitioner, Rachel Bright. I reviewed the nurse practitioner's note and agree with the documented findings and plan of care. Lung sounds are positive for diminished air entry bilaterally with end expiratory wheezes. The findings and the impression was discussed with the patient. I attest to the documentation by the nurse practitioner. Time with Patient: Less than 30
[2017-10-13 17:16] LABS: Glucose,Whole Blood 115 mg/dL (75-99)
[2017-10-13] MEDS: methylPREDNISolone SOD SUCCI 40 MG/ML 1 ML VIAL IV SCH (17:34)
[2017-10-13] MEDS: LEVOFLOXACIN 500 MG TAB PO SCH (17:34)
--- NOTE | 2017-10-13 17:38 | P.PN ---
Subjective Progress Note Date: 10/13/17 Progress note being dictated for Dr. Tang Interval history: This is a 67-year-old gentleman admitted with acute COPD exacerbation, acute purulent tracheobronchitis, recent influenza A, possible sepsis and multiple other medical issues.Lactic Acid worsening, maintained on IV fluid hydration. Evaluated by pulmonary and infectious disease with recommendations noted. Maintained on nebulized bronchodilators, steroids and antibiotics. Currently sitting up at bedside, hunched over bedside table significantly labored breathing-awaiting nebulized treatment. Denies chest pain. 10/10/2017 maintained on nebulized bronchodilators, steroids, Levaquin, Tamiflu , with breathing effort significantly improved today. Afebrile. Maintaining O2 sats in the mid 90s on 3 L nasal cannula. 10/11/2017 No overnight events 10/12/2017 Patient is still significantly short of breath no much air movement on the lung exam Constitutional: Denied any fatigue denied any fever. Cardio vascular: denied any chest pain, palpitations Gastrointestinal denied any nausea vomiting Pulmonary: As mentioned in HPI Neurologic denied any new focal deficits 10/13/2017 minimal ambulation with in room with persistent exertional dyspnea. Maintaining O2 sats of 92% on 2 L nasal cannula. Complains of fatigue. Wheezy with nonproductive cough. Afebrile. Objective - Vital Signs Vital signs: Vital Signs Temp 97.2 F L 10/13/17 07:00 Pulse 88 10/13/17 11:16 Resp 18 10/13/17 07:16 BP 165/86 10/13/17 07:00 Pulse Ox 93 L 10/13/17 07:00 Intake & Output 10/12/17 10/13/17 10/13/17 18:59 06:59 18:59 Intake Total 1740 Output Total 608 Balance 1132 Intake: Oral 1740 Output: Urine 608 Other: Voiding Method Urinal Urinal Urinal # Voids 1 2 - Exam PHYSICAL EXAM: VITAL SIGNS: As above GENERAL: Sitting up at bedside, respiratory effort increased HEENT: Conjunctivae normal. eyes normal. Oral mucosa moist NECK: No JVD. No thyroid enlargement. No LNs CARDIOVASCULAR: S1, S2 muffled. No murmur RESPIRATION: Breath sounds diminished in the bases. Occasional scattered rhonchi, no crackles. Expiratory wheezing ABDOMEN: Soft, nontender . No guarding. no masses palpable.Bowel sounds heard. LEGS: No edema. no swelling PSYCHIATRY: Alert and oriented -3, mood and affect normal. NERVOUS SYSTEM: Cranial N 2-12 grossly normal. Moves all 4 limbs. Diffuse weakness No focal deficits. Skin: no ulcer no rash Joints: No active swelling. No inflammation. Lymphatic system. No LN neck axilla or groin. - Labs CBC & Chem 7: 10/13/17 07:47 10/13/17 07:47 Labs: Abnormal Lab Results - Last 24 Hours (Table) 10/12/17 10/12/17 10/13/17 Range/Units 17:07 20:01 06:57 WBC (3.8-10.6) k/uL Neutrophils # (1.3-7.7) k/uL Lymphocytes # (1.0-4.8) k/uL Carbon Dioxide (22-30) mmol/L BUN (9-20) mg/dL Creatinine (0.66-1.25) mg/dL Glucose (74-99) mg/dL POC Glucose (mg/dL) 140 H 164 H 116 H (75-99) mg/dL 10/13/17 10/13/17 10/13/17 Range/Units 07:47 07:47 11:11 WBC 12.0 H (3.8-10.6) k/uL Neutrophils # 10.6 H (1.3-7.7) k/uL Lymphocytes # 0.6 L (1.0-4.8) k/uL Carbon Dioxide 36 H (22-30) mmol/L BUN 21 H (9-20) mg/dL Creatinine 0.60 L (0.66-1.25) mg/dL Glucose 124 H (74-99) mg/dL POC Glucose (mg/dL) 172 H (75-99) mg/dL Assessment and Plan Assessment: 1. Acute COPD exacerbation with acute purulent tracheobronchitis with sepsis 2. influenza A 3. Leukocytes 4. COPD 5. Hypertension 6. Remote history of nicotine dependence 7. History of anxiety 8. CAD with history of stent placement 9. Hypothyroidism Plan: Continue on current medication regime, Tamiflu, monitoring and symptomatic treatment. Maintain antibiotics, nebulized bronchodilators and steroids. Increase ambulation as tolerated. Follow closely with pulmonary. The impression and plan of care has been dictated as directed. : I performed a history and examination of this patient, discussed the same with the dictator. I agree with the dictator's note ,documented as a scribe. Any additional findings or plans will be noted.
[2017-10-13 20:28] LABS: Glucose,Whole Blood 119 mg/dL (75-99)
[2017-10-13] MEDS: ATORVASTATIN 40 MG TAB PO SCH (20:57)
[2017-10-13] MEDS: ALPRAZolam 0.5 MG TAB PO PRN (22:16)
--- NOTE | 2017-10-13 23:20 | P.PN ---
Subjective Progress Note Date: 10/13/17 Principal diagnosis: Shortness of breath This is a 67-year-old male with a past medical history of COPD and follows with Dr. Coe. Patient was hospitalized in July at [facility] in [facility] for COPD exacerbation. He was hospitalized again within the past week for COPD exacerbation and tested positive for influenza A on October 04. Patient was on Tamiflu along with antibiotics while hospitalized and was discharged on Friday with doxycycline and continued on Tamiflu. Patient states that when he left the hospital he was still having trouble with breathing but no more fevers. He has a cough that is mostly nonproductive. His shortness of breath continued to worsen and he came into [facility] emergency center on Friday and was started on Levaquin, Solu-Medrol , DuoNeb treatments, Pulmicort and Perforomist and admitted to the selective care unit. Patient is followed by Dr. Stark. Patient did receive a dose of both ceftriaxone and azithromycin in the emergency center. Patient is no longer on Tamiflu. He is and droplet isolation. On presentation, patient was afebrile, white count was 17.2 which is improved to 10.6. Creatinine 0.65, d- dimer 0.7, lactic acid initially 3.3 and now 1.9. Troponin 0.012. Urinalysis was clear with nitrate and leukoesterase negative. Chest x-ray showed no acute process. There is a C. diff testing that has not been collected but patient states he presented with diarrhea but this has resolved he has had none since. He has had decreased appetite. No nausea or vomiting. At this time, patient states that his breathing continues to be difficult but improved since he arrived. Patient was on BiPAP during the night. He denies any history of obstructive sleep apnea. 10/11/2017 reveals the patient be feeling slightly better. He's having no further fever. He is not short of breath sitting and conversing which is improved from yesterday when he was short of breath at rest. Denies other new symptoms. No significant discomfort in his chest. 10/13/2017 the patient does feel slightly better today. He sitting upright has had his dinner. We will discuss in conversed with the observer and the . He does not feel like it is baseline but certainly is improved from the time of admission. His who also had influenza has had a progressive recovery. Objective - Vital Signs Vital signs: Vital Signs Temp 97.6 F 10/13/17 22:29 Pulse 100 10/13/17 22:29 Resp 18 10/13/17 22:29 BP 154/69 10/13/17 22:29 Pulse Ox 96 10/13/17 22:29 Intake & Output 10/13/17 10/13/17 10/14/17 06:59 18:59 06:59 Intake Total 160 70 Output Total 500 Balance 160 -430 Intake: IV 160 70 Sodium Chloride 0.9% 1, 160 70 000 ml @ 20 mls/hr IV . Q24H [facility] Rx#:[id number] Output: Urine 500 Other: Voiding Method Urinal Urinal # Voids 2 - Exam en: This is a 67-year-old male. He is sitting in a tripod position and appears to have mild respiratory distress with tachypnea. HEENT: Head is atraumatic, normocephalic. Pupils equal, round. Sclerae is anicteric. Conjunctiva pink. NECK: Supple. No JVD. No lymphadenopathy. No thyromegaly. LUNGS: Diminished breath sounds throughout with inspiratory and expiratory rhonchi and expiratory wheezes. Mild accessory muscle usage and intercostal retractions. Positive mild tachypnea HEART: Regular rate and rhythm. No murmur. ABDOMEN: Soft. Bowel sounds are present. No masses. No tenderness. EXTREMITIES: 1+ edema to the right foot, no pedal edema to the left. Dorsalis pedis +2 bilaterally. No calf tenderness. NEUROLOGICAL: Patient is awake, alert and oriented x3. - Labs CBC & Chem 7: 10/13/17 07:47 10/13/17 07:47 Labs: Abnormal Lab Results - Last 24 Hours (Table) 10/13/17 10/13/17 10/13/17 Range/Units 06:57 07:47 07:47 WBC 12.0 H (3.8-10.6) k/uL Neutrophils # 10.6 H (1.3-7.7) k/uL Lymphocytes # 0.6 L (1.0-4.8) k/uL Carbon Dioxide 36 H (22-30) mmol/L BUN 21 H (9-20) mg/dL Creatinine 0.60 L (0.66-1.25) mg/dL Glucose 124 H (74-99) mg/dL POC Glucose (mg/dL) 116 H (75-99) mg/dL 10/13/17 10/13/17 10/13/17 Range/Units 11:11 17:15 20:21 WBC (3.8-10.6) k/uL Neutrophils # (1.3-7.7) k/uL Lymphocytes # (1.0-4.8) k/uL Carbon Dioxide (22-30) mmol/L BUN (9-20) mg/dL Creatinine (0.66-1.25) mg/dL Glucose (74-99) mg/dL POC Glucose (mg/dL) 172 H 115 H 119 H (75-99) mg/dL Laboratory Results WBC 12.0 k/uL (3.8-10.6) H 10/13/17 07:47 RBC 4.96 m/uL (4.30-5.90) 10/13/17 07:47 Hgb 14.6 gm/dL (13.0-17.5) 10/13/17 07:47 Hct 43.0 % (39.0-53.0) 10/13/17 07:47 MCV 86.7 fL (80.0-100.0) 10/13/17 07:47 MCH 29.5 pg (25.0-35.0) 10/13/17 07:47 MCHC 34.0 g/dL (31.0-37.0) 10/13/17 07:47 RDW 13.5 % (11.5-15.5) 10/13/17 07:47 Plt Count 288 k/uL (150-450) 10/13/17 07:47 Neutrophils % 89 % 10/13/17 07:47 Lymphocytes % 5 % 10/13/17 07:47 Monocytes % 5 % 10/13/17 07:47 Eosinophils % 0 % 10/13/17 07:47 Basophils % 0 % 10/13/17 07:47 Neutrophils # 10.6 k/uL (1.3-7.7) H 10/13/17 07:47 Lymphocytes # 0.6 k/uL (1.0-4.8) L 10/13/17 07:47 Monocytes # 0.6 k/uL (0-1.0) 10/13/17 07:47 Eosinophils # 0.0 k/uL (0-0.7) 10/13/17 07:47 Basophils # 0.1 k/uL (0-0.2) 10/13/17 07:47 PT 10.2 sec (9.0-12.0) 10/08/17 21:15 INR 1.0 (<1.2) 10/08/17 21:15 APTT 20.1 sec (22.0-30.0) L 10/08/17 21:15 D-Dimer 0.70 mg/L FEU (<0.60) H 10/08/17 21:15 Sodium 144 mmol/L (137-145) 10/13/17 07:47 Potassium 3.8 mmol/L (3.5-5.1) 10/13/17 07:47 Chloride 100 mmol/L (98-107) 10/13/17 07:47 Carbon Dioxide 36 mmol/L (22-30) H 10/13/17 07:47 Anion Gap 8 mmol/L 10/13/17 07:47 BUN 21 mg/dL (9-20) H 10/13/17 07:47 Creatinine 0.60 mg/dL (0.66-1.25) L 10/13/17 07:47 Est GFR (CKD-EPI)AfAm >90 (>60 ml/min/1.73 sqM) 10/13/17 07:47 Est GFR (CKD-EPI)NonAf >90 (>60 ml/min/1.73 sqM) 10/13/17 07:47 Glucose 124 mg/dL (74-99) H 10/13/17 07:47 POC Glucose (mg/dL) 119 mg/dL (75-99) H 10/13/17 20:21 POC Glu [employer] ID Jo-Ann Ruelas 10/13/17 20:[address] Glu mg/dL 117 10/09/17 01:10 Hemoglobin A1c 5.7 % (4.0-6.0) 10/09/17 01:10 Lactic Ac Sepsis Rflx Y 10/10/17 00:52 Plasma Lactic Acid Sonny 1.9 mmol/L (0.7-2.0) 10/10/17 04:08 Calcium 8.8 mg/dL (8.4-10.2) 10/13/17 07:47 Magnesium 2.3 mg/dL (1.6-2.3) 10/08/17 21:15 Total Bilirubin 0.3 mg/dL (0.2-1.3) 10/08/17 21:15 AST 30 U/L (17-59) 10/08/17 21:15 ALT 35 U/L (21-72) 10/08/17 21:15 Alkaline Phosphatase 97 U/L (38-126) 10/08/17 21:15 Total Creatine Kinase 70 U/L (55-170) 10/08/17 21:15 CK-MB (CK-2) 2.2 ng/mL (0.0-2.4) 10/08/17 21:15 CK-MB (CK-2) Rel Index 3.1 10/08/17 21:15 Troponin I <0.012 ng/mL (0.000-0.034) 10/08/17 21:15 NT-Pro-B Natriuret Pep 240 pg/mL 10/08/17 21:15 Total Protein 7.0 g/dL (6.3-8.2) 10/08/17 21:15 Albumin 3.9 g/dL (3.5-5.0) 10/08/17 21:15 Urine Color Yellow 10/09/17 04:50 Urine Appearance Clear (Clear) 10/09/17 04:50 Urine pH 6.0 (5.0-8.0) 10/09/17 04:50 Ur Specific [place] 1.018 (1.001-1.035) 10/09/17 04:50 Urine Protein Negative (Negative) 10/09/17 04:50 Urine Glucose (UA) Negative (Negative) 10/09/17 04:50 Urine Ketones Negative (Negative) 10/09/17 04:50 Urine Blood Negative (Negative) 10/09/17 04:50 Urine Nitrite Negative (Negative) 10/09/17 04:50 Urine Bilirubin Negative (Negative) 10/09/17 04:50 Urine Urobilinogen <2.0 mg/dL (<2.0) 10/09/17 04:50 Ur Leukocyte Esterase Negative (Negative) 10/09/17 04:50 Influenza Type A RNA Detected (Not Detectd) H 10/10/17 10:13 Influenza Type B (PCR) Not Detected (Not Detectd) 10/10/17 10:13 Assessment and Plan (1) Influenza A (H1N1) Narrative/Plan: 67year old male with a history of oxygen dependent COPD presented to his local hospital with severe shortness of breath, was found to have influenza and was treated with Tamiflu for 10 doses then discharged to home, within a short time he became much more short of breath and presented to the ER at [facility], admitted with exacerbation of COPD. At the time of the consult a stat PCR for Influenza was done and is positive. It appears that the patient did not have a complete response to the traditional course of therapy, as per CDC if needed the course of treatment can be extended as needed to allow resolution of the infection. Tamiflu is continued with the treatment of the COPD. Noninvasive ventilatory support will be utilized as needed. 10/11/2017 reveals the patient to be improved from yesterday. He has not had shortness of breath at rest like he was yesterday. But does develop significant dyspnea with exertion. He will continue with his Tamiflu, respiratory treatments, steroid therapy and oxygen supplementation. Pulmonary critical care is following. His chest x-ray is negative and does not appear to have significant viral pneumonitis. If he continues to have significant shortness of breath benefit from CT of his chest to evaluate for disease process not evident by plain chest x-ray. 10/13/2017 the patient does have some slight improvement. He has less fatigued and is less dyspneic than he was. Still does not feel any were near his baseline. But does believe further respiratory treatments and other interventions he is feeling better. He is denying fevers or chills. He is pleased with his 's influenza is responding well. As he showing some further improvement he likely transition to complete a course of Tamiflu and Levaquin at home as well as a tapering dose of steroids. Current Visit: Yes Status: Acute Code(s): J10.1 - FLU DUE TO OTH IDENT INFLUENZA VIRUS W OTH RESP MANIFEST SNOMED Code(s): 932933011 (2) Acute exacerbation of chronic obstructive airways disease Current Visit: Yes Status: Acute Code(s): J44.1 - CHRONIC OBSTRUCTIVE PULMONARY DISEASE W (ACUTE) EXACERBATION SNOMED Code(s): 484632172
[2017-10-14] MEDS: methylPREDNISolone SOD SUCCI 40 MG/ML 1 ML VIAL IV SCH ×4 (00:25→22:59)
[2017-10-14] MEDS: SODIUM CHLORIDE 0.9% 1,000 ML IV SCH ×3 (00:26→11:13)
[2017-10-14] MEDS: LEVOTHYROXINE 100 MCG TAB PO SCH (06:06)
[2017-10-14 07:07] LABS: Glucose,Whole Blood 114 mg/dL (75-99)
[2017-10-14 08:11] LABS: Basophils # (A) 0.1 k/uL (0-0.2); Basophils % (A) 1 %; Eosinophils % (A) 0 %; HCT 44.6 % (39.0-53.0); HGB 14.1 gm/dL (13.0-17.5); Lymphocytes # (A) 0.6 k/uL (1.0-4.8); Lymphocytes % (A) 5 %; MCH 27.9 pg (25.0-35.0); MCHC 31.6 g/dL (31.0-37.0); MCV 88.5 fL (80.0-100.0); Mean Platelet Volume 6.8; Monocytes # (A) 0.6 k/uL (0-1.0); Monocytes % (A) 5 %; Neutrophils # (A) 10.3 k/uL (1.3-7.7); Neutrophils % (A) 89 %; Platelet Count 276 k/uL (150-450); RBC 5.04 m/uL (4.30-5.90); RDW 13.7 % (11.5-15.5); WBC 11.6 k/uL (3.8-10.6)
[2017-10-14 08:38] LABS: Blood Urea Nitrogen 23 mg/dL (9-20); Calcium 8.9 mg/dL (8.4-10.2); Chloride 96 mmol/L (98-107); Glucose 119 mg/dL (74-99); Sodium 142 mmol/L (137-145)
[2017-10-14 08:45] LABS: Anion Gap 8 mmol/L
[2017-10-14 08:50] LABS: Carbon Dioxide 38 mmol/L (22-30); Potassium 4.1 mmol/L (3.5-5.1)
[2017-10-14] MEDS: INSULIN ASPART 100 UNIT/ML 1 ML 10 ML VIAL SQ SCH ×4 (08:57→21:23)
[2017-10-14] MEDS: ENOXAPARIN 40 MG/0.4 ML SYRINGE SQ SCH (08:58)
[2017-10-14] MEDS: guaiFENesin 600 MG TABLET.ER PO SCH ×2 (08:58→21:23)
[2017-10-14] MEDS: IPRATROPIUM-ALBUTEROL 3 ML NEB INHALATION SCH ×4 (08:58→20:25)
[2017-10-14] MEDS: DILTIAZEM CD 180 MG CAP.ER.24H PO SCH (08:59)
[2017-10-14] MEDS: FAMOTIDINE 20 MG TAB PO SCH ×2 (08:59→21:23)
[2017-10-14] MEDS: MULTIVITAMINS, THERA 1 EACH TAB PO SCH (08:59)
[2017-10-14] MEDS: OSELTAMIVIR 75 MG CAP PO SCH ×2 (08:59→21:23)
[2017-10-14] MEDS: SYMBICORT 160-4.5 MCG INHALER INHALATION SCH ×2 (08:59→20:25)
[2017-10-14] MEDS: ASPIRIN 81 MG PO SCH (08:59)
[2017-10-14 11:28] LABS: Glucose,Whole Blood 181 mg/dL (75-99)
--- NOTE | 2017-10-14 16:25 | P.PN ---
Subjective Progress Note Date: 10/14/17 Principal diagnosis: COPD exacerbation complicated by. Tracheobronchitis, influenza A infection Progress note dated 10/12/2017 67-year-old male admitted with a diagnosis of COPD exacerbation complicated by purulent tracheobronchitis and recurrent influenza A infection. The patient has a history of hyperlipidemia, hypertension, hypothyroidism, previous heavy tobacco use history of anxiety and CAD with previous stent placement. The patient continues to improve. Feeling better. The patient/short of breath. I thought he could probably go home either today or tomorrow. I'll leave that up to the primary service. He was started back on Tamiflu as per infectious disease. Denies any fever or chills. Coughing. Not producing any phlegm. No nausea vomiting or diarrhea. No chest pain or chest discomfort. On 10/13/2017 patient seen in follow-up. He states he is still very dyspneic with any activity, he is only been ambulating to the bathroom couple times a day , Ventolin rescue the time the patient states in the tripod position over his bedside table. Lung sounds are very diminished bilaterally, with end expiratory wheezing. So he is improving, he feels very fatigued and worn out. His been afebrile, hemodynamically stable, he is on 2 L per nasal cannula with O2 sat at 92%. Today's labs were reviewed, WBCs 12.0, CO2 36, BUN is 21, and creatinine 0.60. Patient is not bringing up any sputum, denies any fever or chills, denies any chest pain. Continue with current plan of care. On the 2017 patient seen in follow-up on medical surgical floor. He continues to feel very fatigued and worn out. Dyspneic with activity. Positive for some chills. Remains afebrile, on 3 L per nasal cannula his pulse ox is 99%, his other vitals are stable. His lung sounds are positive for very faint and expiratory wheezes, diminished breath sounds bilaterally. He states he is not getting any worse, but thinks he is not getting any better. He remains on a course of Tamiflu, Levaquin, nebulized treatments. Today's labs showed a PVC of 11.6, chloride is 96, carbon dioxide is 38, BUN is 23, creatinine is 0.62. he remains on droplet precautions. Feels like he is not back to his baseline. was seen in consultation by ID service. We'll continue with current plan of care, patient is not ready for discharge home yet. Objective - Vital Signs Vital signs: Vital Signs Temp 97.1 F L 10/14/17 14:56 Pulse 91 10/14/17 14:56 Resp 18 10/14/17 14:56 BP 144/75 10/14/17 14:56 Pulse Ox 99 10/14/17 14:56 Intake & Output 10/13/17 10/14/17 10/14/17 18:59 06:59 18:59 Intake Total 160 610 Output Total 1100 700 Balance 160 -490 -700 Intake: IV 160 70 Sodium Chloride 0.9% 1, 160 70 000 ml @ 20 mls/hr IV . Q24H [facility] Rx#:[id number] Oral 540 Output: Urine 1100 700 Other: Voiding Method Urinal Urinal Urinal - Exam No acute distress, oriented 3. Nasal O2 in place. Patient is sitting in the tripod position leaning over a bedside table HEENT examination is grossly unremarkable. Mucous membranes are moist. No oral lesions. Neck supple. Full range of motion. No adenopathy thyromegaly or neck vein distention. Cardiovascular examination reveals regular rhythm rate. S1-S2 normal. No S3 or S4. No discernible murmur noted. Lungs reveal diminished breath sounds. There are a few faint end expiratory wheezes auscultated bilaterally Abdomen soft bowel sounds are heard. No masses or tenderness. Extremities are intact. No cyanosis clubbing or edema. Skin is without rash or lesion. Neurologic examination is brief but nonfocal. - Labs CBC & Chem 7: 10/14/17 07:52 10/14/17 07:52 Labs: Abnormal Lab Results - Last 24 Hours (Table) 10/13/17 10/13/17 10/14/17 Range/Units 17:15 20:21 07:01 WBC (3.8-10.6) k/uL Neutrophils # (1.3-7.7) k/uL Lymphocytes # (1.0-4.8) k/uL Chloride (98-107) mmol/L Carbon Dioxide (22-30) mmol/L BUN (9-20) mg/dL Creatinine (0.66-1.25) mg/dL Glucose (74-99) mg/dL POC Glucose (mg/dL) 115 H 119 H 114 H (75-99) mg/dL 10/14/17 10/14/17 10/14/17 Range/Units 07:52 07:52 11:15 WBC 11.6 H (3.8-10.6) k/uL Neutrophils # 10.3 H (1.3-7.7) k/uL Lymphocytes # 0.6 L (1.0-4.8) k/uL Chloride 96 L (98-107) mmol/L Carbon Dioxide 38 H (22-30) mmol/L BUN 23 H (9-20) mg/dL Creatinine 0.62 L (0.66-1.25) mg/dL Glucose 119 H (74-99) mg/dL POC Glucose (mg/dL) 181 H (75-99) mg/dL Assessment and Plan Plan: Assessment: COPD exacerbation complicated by purulent tracheobronchitis Recent and recurrent influenza A infection Hyperlipidemia Hypertension Hypothyroidism Previous heavy tobacco use History of anxiety Coronary artery disease with stent placement Plan: Patient remains very weak, fatigued, states he is not anywhere near his baseline yet. He denies getting worse, but not significantly better yet. We will continue current plan of care, Levaquin, Tamiflu, IV Solu-Medrol, nebulized treatments. Increase activity as tolerated, ambulate within the room. Patient is not ready for discharge yet, will need another day of inpatient treatment and monitoring. I performed a history & physical examination of the patient and discussed their management with my nurse practitioner, Rachel Bright. I reviewed the nurse practitioner's note and agree with the documented findings and plan of care. Lung sounds are positive for diminished air entry bilaterally with end expiratory wheezes. The findings and the impression was discussed with the patient. I attest to the documentation by the nurse practitioner. Time with Patient: Less than 30
[2017-10-14] MEDS: LEVOFLOXACIN 500 MG TAB PO SCH (17:21)
[2017-10-14 17:29] LABS: Glucose,Whole Blood 103 mg/dL (75-99)
--- NOTE | 2017-10-14 18:01 | P.PN ---
Subjective Progress Note Date: 10/14/17 Progress note being dictated for Dr. Tang Interval history: This is a 67-year-old gentleman admitted with acute COPD exacerbation, acute purulent tracheobronchitis, recent influenza A, possible sepsis and multiple other medical issues.Lactic Acid worsening, maintained on IV fluid hydration. Evaluated by pulmonary and infectious disease with recommendations noted. Maintained on nebulized bronchodilators, steroids and antibiotics. Currently sitting up at bedside, hunched over bedside table significantly labored breathing-awaiting nebulized treatment. Denies chest pain. 10/10/2017 maintained on nebulized bronchodilators, steroids, Levaquin, Tamiflu , with breathing effort significantly improved today. Afebrile. Maintaining O2 sats in the mid 90s on 3 L nasal cannula. 10/11/2017 No overnight events 10/12/2017 Patient is still significantly short of breath no much air movement on the lung exam Constitutional: Denied any fatigue denied any fever. Cardio vascular: denied any chest pain, palpitations Gastrointestinal denied any nausea vomiting Pulmonary: As mentioned in HPI Neurologic denied any new focal deficits 10/13/2017 minimal ambulation with in room with persistent exertional dyspnea. Maintaining O2 sats of 92% on 2 L nasal cannula. Complains of fatigue. Wheezy with nonproductive cough. Afebrile. 10/14/2017 breathing improving at rest but exertional dyspnea persists. Denies productive cough. Fatigued. Afebrile. Objective - Vital Signs Vital signs: Vital Signs Temp 97.1 F L 10/14/17 14:56 Pulse 89 10/14/17 16:23 Resp 16 10/14/17 16:23 BP 144/75 10/14/17 14:56 Pulse Ox 99 10/14/17 14:56 Intake & Output 10/13/17 10/14/17 10/14/17 18:59 06:59 18:59 Intake Total 160 610 Output Total 1100 700 Balance 160 -490 -700 Intake: IV 160 70 Sodium Chloride 0.9% 1, 160 70 000 ml @ 20 mls/hr IV . Q24H [facility] Rx#:[id number] Oral 540 Output: Urine 1100 700 Other: Voiding Method Urinal Urinal Urinal - Exam PHYSICAL EXAM: VITAL SIGNS: As above GENERAL: Sitting up in chair, respiratory effort increased, improving HEENT: Conjunctivae normal. eyes normal. Oral mucosa moist NECK: No JVD. No thyroid enlargement. No LNs CARDIOVASCULAR: S1, S2 muffled. No murmur RESPIRATION: Better air entry with Breath sounds diminished in the bases. Occasional scattered rhonchi, no crackles. Expiratory wheezing improving ABDOMEN: Soft, nontender . No guarding. no masses palpable.Bowel sounds heard. LEGS: No edema. no swelling PSYCHIATRY: Alert and oriented -3, mood and affect normal. NERVOUS SYSTEM: Cranial N 2-12 grossly normal. Moves all 4 limbs. Diffuse weakness No focal deficits. Skin: no ulcer no rash Joints: No active swelling. No inflammation. Lymphatic system. No LN neck axilla or groin. - Labs CBC & Chem 7: 10/14/17 07:52 10/14/17 07:52 Labs: Abnormal Lab Results - Last 24 Hours (Table) 10/13/17 10/14/17 10/14/17 Range/Units 20:21 07:01 07:52 WBC 11.6 H (3.8-10.6) k/uL Neutrophils # 10.3 H (1.3-7.7) k/uL Lymphocytes # 0.6 L (1.0-4.8) k/uL Chloride (98-107) mmol/L Carbon Dioxide (22-30) mmol/L BUN (9-20) mg/dL Creatinine (0.66-1.25) mg/dL Glucose (74-99) mg/dL POC Glucose (mg/dL) 119 H 114 H (75-99) mg/dL 10/14/17 10/14/17 10/14/17 Range/Units 07:52 11:15 17:05 WBC (3.8-10.6) k/uL Neutrophils # (1.3-7.7) k/uL Lymphocytes # (1.0-4.8) k/uL Chloride 96 L (98-107) mmol/L Carbon Dioxide 38 H (22-30) mmol/L BUN 23 H (9-20) mg/dL Creatinine 0.62 L (0.66-1.25) mg/dL Glucose 119 H (74-99) mg/dL POC Glucose (mg/dL) 181 H 103 H (75-99) mg/dL Assessment and Plan Assessment: 1. Acute COPD exacerbation with acute purulent tracheobronchitis with sepsis 2. influenza A 3. Leukocytes 4. COPD 5. Hypertension 6. Remote history of nicotine dependence 7. History of anxiety 8. CAD with history of stent placement 9. Hypothyroidism Plan: Continue on current medication regime, Tamiflu, monitoring and symptomatic treatment. Maintain antibiotics, nebulized bronchodilators and steroids. Increase ambulation as tolerated. Discharge planning in progress pending pulmonary clearance. The impression and plan of care has been dictated as directed. : I performed a history and examination of this patient, discussed the same with the dictator. I agree with the dictator's note ,documented as a scribe. Any additional findings or plans will be noted.
[2017-10-14 20:37] LABS: Glucose,Whole Blood 138 mg/dL (75-99)
[2017-10-14] MEDS: ATORVASTATIN 40 MG TAB PO SCH (21:23)
[2017-10-14] MEDS: ALPRAZolam 0.5 MG TAB PO PRN (22:59)
--- NOTE | 2017-10-15 00:09 | P.PN ---
Subjective Progress Note Date: 10/14/17 Principal diagnosis: Shortness of breath This is a 67-year-old male with a past medical history of COPD and follows with Dr. Coe. Patient was hospitalized in July at [facility] in [facility] for COPD exacerbation. He was hospitalized again within the past week for COPD exacerbation and tested positive for influenza A on October 04. Patient was on Tamiflu along with antibiotics while hospitalized and was discharged on Friday with doxycycline and continued on Tamiflu. Patient states that when he left the hospital he was still having trouble with breathing but no more fevers. He has a cough that is mostly nonproductive. His shortness of breath continued to worsen and he came into [facility] on Friday and was started on Levaquin, Solu-Medrol , DuoNeb treatments, Pulmicort and Perforomist and admitted to the selective care unit. Patient is followed by Dr. Stark. Patient did receive a dose of both ceftriaxone and azithromycin in the emergency center. Patient is no longer on Tamiflu. He is and droplet isolation. On presentation, patient was afebrile, white count was 17.2 which is improved to 10.6. Creatinine 0.65, d- dimer 0.7, lactic acid initially 3.3 and now 1.9. Troponin 0.012. Urinalysis was clear with nitrate and leukoesterase negative. Chest x-ray showed no acute process. There is a C. diff testing that has not been collected but patient states he presented with diarrhea but this has resolved he has had none since. He has had decreased appetite. No nausea or vomiting. At this time, patient states that his breathing continues to be difficult but improved since he arrived. Patient was on BiPAP during the night. He denies any history of obstructive sleep apnea. 10/11/2017 reveals the patient be feeling slightly better. He's having no further fever. He is not short of breath sitting and conversing which is improved from yesterday when he was short of breath at rest. Denies other new symptoms. No significant discomfort in his chest. 10/13/2017 the patient does feel slightly better today. He sitting upright has had his dinner. We will discuss in conversed with the observer and the . He does not feel like it is baseline but certainly is improved from the time of admission. His who also had influenza has had a progressive recovery. 10/14/2017 shows a patient to have some further improvement. Continues to sit up for long periods of time. Tries to elevate his legs for his lower extremity edema, they do well with LEVY hose. Patient's has further improvement for acute respiratory infection with influenza. Objective - Vital Signs Vital signs: Vital Signs Temp 97.1 F L 10/14/17 14:56 Pulse 89 10/14/17 20:36 Resp 18 10/14/17 20:36 BP 144/75 10/14/17 14:56 Pulse Ox 99 10/14/17 14:56 Intake & Output 10/14/17 10/14/17 10/15/17 06:59 18:59 06:59 Intake Total 610 70 Output Total 1100 700 Balance -490 -700 70 Intake: IV 70 70 Sodium Chloride 0.9% 1, 70 70 000 ml @ 20 mls/hr IV . Q24H [facility] Rx#:[id number] Oral 540 Output: Urine 1100 700 Other: Voiding Method Urinal Urinal - Exam en: This is a 67-year-old male. He is sitting in a tripod position and appears to have mild respiratory distress with tachypnea. HEENT: Head is atraumatic, normocephalic. Pupils equal, round. Sclerae is anicteric. Conjunctiva pink. NECK: Supple. No JVD. No lymphadenopathy. No thyromegaly. LUNGS: Diminished breath sounds throughout with inspiratory and expiratory rhonchi and expiratory wheezes. Mild accessory muscle usage and intercostal retractions. Positive mild tachypnea HEART: Regular rate and rhythm. No murmur. ABDOMEN: Soft. Bowel sounds are present. No masses. No tenderness. EXTREMITIES: 1+ edema to the right foot, no pedal edema to the left. Dorsalis pedis +2 bilaterally. No calf tenderness. NEUROLOGICAL: Patient is awake, alert and oriented x3. - Labs CBC & Chem 7: 10/14/17 07:52 10/14/17 07:52 Labs: Abnormal Lab Results - Last 24 Hours (Table) 10/14/17 10/14/17 10/14/17 Range/Units 07:01 07:52 07:52 WBC 11.6 H (3.8-10.6) k/uL Neutrophils # 10.3 H (1.3-7.7) k/uL Lymphocytes # 0.6 L (1.0-4.8) k/uL Chloride 96 L (98-107) mmol/L Carbon Dioxide 38 H (22-30) mmol/L BUN 23 H (9-20) mg/dL Creatinine 0.62 L (0.66-1.25) mg/dL Glucose 119 H (74-99) mg/dL POC Glucose (mg/dL) 114 H (75-99) mg/dL 10/14/17 10/14/17 10/14/17 Range/Units 11:15 17:05 20:25 WBC (3.8-10.6) k/uL Neutrophils # (1.3-7.7) k/uL Lymphocytes # (1.0-4.8) k/uL Chloride (98-107) mmol/L Carbon Dioxide (22-30) mmol/L BUN (9-20) mg/dL Creatinine (0.66-1.25) mg/dL Glucose (74-99) mg/dL POC Glucose (mg/dL) 181 H 103 H 138 H (75-99) mg/dL Laboratory Results WBC 11.6 k/uL (3.8-10.6) H 10/14/17 07:52 RBC 5.04 m/uL (4.30-5.90) 10/14/17 07:52 Hgb 14.1 gm/dL (13.0-17.5) 10/14/17 07:52 Hct 44.6 % (39.0-53.0) 10/14/17 07:52 MCV 88.5 fL (80.0-100.0) 10/14/17 07:52 MCH 27.9 pg (25.0-35.0) 10/14/17 07:52 MCHC 31.6 g/dL (31.0-37.0) 10/14/17 07:52 RDW 13.7 % (11.5-15.5) 10/14/17 07:52 Plt Count 276 k/uL (150-450) 10/14/17 07:52 Neutrophils % 89 % 10/14/17 07:52 Lymphocytes % 5 % 10/14/17 07:52 Monocytes % 5 % 10/14/17 07:52 Eosinophils % 0 % 10/14/17 07:52 Basophils % 1 % 10/14/17 07:52 Neutrophils # 10.3 k/uL (1.3-7.7) H 10/14/17 07:52 Lymphocytes # 0.6 k/uL (1.0-4.8) L 10/14/17 07:52 Monocytes # 0.6 k/uL (0-1.0) 10/14/17 07:52 Eosinophils # 0.0 k/uL (0-0.7) 10/14/17 07:52 Basophils # 0.1 k/uL (0-0.2) 10/14/17 07:52 PT 10.2 sec (9.0-12.0) 10/08/17 21:15 INR 1.0 (<1.2) 10/08/17 21:15 APTT 20.1 sec (22.0-30.0) L 10/08/17 21:15 D-Dimer 0.70 mg/L FEU (<0.60) H 10/08/17 21:15 Sodium 142 mmol/L (137-145) 10/14/17 07:52 Potassium 4.1 mmol/L (3.5-5.1) 10/14/17 07:52 Chloride 96 mmol/L (98-107) L 10/14/17 07:52 Carbon Dioxide 38 mmol/L (22-30) H 10/14/17 07:52 Anion Gap 8 mmol/L 10/14/17 07:52 BUN 23 mg/dL (9-20) H 10/14/17 07:52 Creatinine 0.62 mg/dL (0.66-1.25) L 10/14/17 07:52 Est GFR (CKD-EPI)AfAm >90 (>60 ml/min/1.73 sqM) 10/14/17 07:52 Est GFR (CKD-EPI)NonAf >90 (>60 ml/min/1.73 sqM) 10/14/17 07:52 Glucose 119 mg/dL (74-99) H 10/14/17 07:52 POC Glucose (mg/dL) 138 mg/dL (75-99) H 10/14/17 20:25 POC Glu [employer] Representative Jo-Ann Blackmon 10/14/17 20:[address] Glu mg/dL 117 10/09/17 01:10 Hemoglobin A1c 5.7 % (4.0-6.0) 10/09/17 01:10 Lactic Ac Sepsis Rflx Y 10/10/17 00:52 Plasma Lactic Acid Sonny 1.9 mmol/L (0.7-2.0) 10/10/17 04:08 Calcium 8.9 mg/dL (8.4-10.2) 10/14/17 07:52 Magnesium 2.3 mg/dL (1.6-2.3) 10/08/17 21:15 Total Bilirubin 0.3 mg/dL (0.2-1.3) 10/08/17 21:15 AST 30 U/L (17-59) 10/08/17 21:15 ALT 35 U/L (21-72) 10/08/17 21:15 Alkaline Phosphatase 97 U/L (38-126) 10/08/17 21:15 Total Creatine Kinase 70 U/L (55-170) 10/08/17 21:15 CK-MB (CK-2) 2.2 ng/mL (0.0-2.4) 10/08/17 21:15 CK-MB (CK-2) Rel Index 3.1 10/08/17 21:15 Troponin I <0.012 ng/mL (0.000-0.034) 10/08/17 21:15 NT-Pro-B Natriuret Pep 240 pg/mL 10/08/17 21:15 Total Protein 7.0 g/dL (6.3-8.2) 10/08/17 21:15 Albumin 3.9 g/dL (3.5-5.0) 10/08/17 21:15 Urine Color Yellow 10/09/17 04:50 Urine Appearance Clear (Clear) 10/09/17 04:50 Urine pH 6.0 (5.0-8.0) 10/09/17 04:50 Ur Specific [place] 1.018 (1.001-1.035) 10/09/17 04:50 Urine Protein Negative (Negative) 10/09/17 04:50 Urine Glucose (UA) Negative (Negative) 10/09/17 04:50 Urine Ketones Negative (Negative) 10/09/17 04:50 Urine Blood Negative (Negative) 10/09/17 04:50 Urine Nitrite Negative (Negative) 10/09/17 04:50 Urine Bilirubin Negative (Negative) 10/09/17 04:50 Urine Urobilinogen <2.0 mg/dL (<2.0) 10/09/17 04:50 Ur Leukocyte Esterase Negative (Negative) 10/09/17 04:50 Influenza Type A RNA Detected (Not Detectd) H 10/10/17 10:13 Influenza Type B (PCR) Not Detected (Not Detectd) 10/10/17 10:13 Assessment and Plan (1) Influenza A (H1N1) Narrative/Plan: 67year old male with a history of oxygen dependent COPD presented to his local hospital with severe shortness of breath, was found to have influenza and was treated with Tamiflu for 10 doses then discharged to home, within a short time he became much more short of breath and presented to the ER at [facility], admitted with exacerbation of COPD. At the time of the consult a stat PCR for Influenza was done and is positive. It appears that the patient did not have a complete response to the traditional course of therapy, as per CDC if needed the course of treatment can be extended as needed to allow resolution of the infection. Tamiflu is continued with the treatment of the COPD. Noninvasive ventilatory support will be utilized as needed. 10/11/2017 reveals the patient to be improved from yesterday. He has not had shortness of breath at rest like he was yesterday. But does develop significant dyspnea with exertion. He will continue with his Tamiflu, respiratory treatments, steroid therapy and oxygen supplementation. Pulmonary critical care is following. His chest x-ray is negative and does not appear to have significant viral pneumonitis. If he continues to have significant shortness of breath benefit from CT of his chest to evaluate for disease process not evident by plain chest x-ray. 10/13/2017 the patient does have some slight improvement. He has less fatigued and is less dyspneic than he was. Still does not feel any were near his baseline. But does believe further respiratory treatments and other interventions he is feeling better. He is denying fevers or chills. He is pleased with his 's influenza is responding well. As he showing some further improvement he likely transition to complete a course of Tamiflu and Levaquin at home as well as a tapering dose of steroids. 10/14/2017 reveals the patient to have some further improvement but is still not feeling well. He continues to have very poor exercise tolerance and that he begin to the bathroom makes him quite short winded. The patient has had pulmonary rehab in the past. We try to get him to think about how that worked in the past. He needs to start to increase his activity level, will increase his muscular strength including of his chest wall which in turn will improve his pulmonary function. Await input from pulmonary critical care past to his readiness for discharge. Current Visit: Yes Status: Acute Code(s): J10.1 - FLU DUE TO OTH IDENT INFLUENZA VIRUS W OTH RESP MANIFEST SNOMED Code(s): 568190468 (2) Acute exacerbation of chronic obstructive airways disease Current Visit: Yes Status: Acute Code(s): J44.1 - CHRONIC OBSTRUCTIVE PULMONARY DISEASE W (ACUTE) EXACERBATION SNOMED Code(s): 219361820
[2017-10-15 02:21] VITALS: RESP 16
[2017-10-15] MEDS: SODIUM CHLORIDE 0.9% 1,000 ML IV SCH (04:38)
[2017-10-15] MEDS: LEVOTHYROXINE 100 MCG TAB PO SCH (06:19)
[2017-10-15 07:07] LABS: Glucose,Whole Blood 116 mg/dL (75-99)
[2017-10-15] MEDS: SYMBICORT 160-4.5 MCG INHALER INHALATION SCH (07:15)
[2017-10-15] MEDS: IPRATROPIUM-ALBUTEROL 3 ML NEB INHALATION SCH ×2 (07:15→11:29)
[2017-10-15] MEDS: INSULIN ASPART 100 UNIT/ML 1 ML 10 ML VIAL SQ SCH ×2 (07:32→12:09)
[2017-10-15 08:21] VITALS: BP 149/80; TEMP 97.8
[2017-10-15] MEDS: methylPREDNISolone SOD SUCCI 40 MG/ML 1 ML VIAL IV SCH (08:47)
[2017-10-15] MEDS: ENOXAPARIN 40 MG/0.4 ML SYRINGE SQ SCH (08:47)
[2017-10-15] MEDS: FAMOTIDINE 20 MG TAB PO SCH (08:47)
[2017-10-15] MEDS: guaiFENesin 600 MG TABLET.ER PO SCH (08:47)
[2017-10-15] MEDS: MULTIVITAMINS, THERA 1 EACH TAB PO SCH (08:47)
[2017-10-15] MEDS: DILTIAZEM CD 180 MG CAP.ER.24H PO SCH (08:48)
[2017-10-15] MEDS: ASPIRIN 81 MG PO SCH (08:48)
[2017-10-15 11:29] VITALS: BMI 25.2
[2017-10-15 11:31] VITALS: PULSE 82
[2017-10-15 11:40] LABS: Glucose,Whole Blood 106 mg/dL (75-99)
--- NOTE | 2017-10-15 15:09 | P.PN ---
Subjective Progress Note Date: 10/15/17 Principal diagnosis: COPD exacerbation complicated by. Tracheobronchitis, influenza A infection Progress note dated 10/12/2017 67-year-old male admitted with a diagnosis of COPD exacerbation complicated by purulent tracheobronchitis and recurrent influenza A infection. The patient has a history of hyperlipidemia, hypertension, hypothyroidism, previous heavy tobacco use history of anxiety and CAD with previous stent placement. The patient continues to improve. Feeling better. The patient/short of breath. I thought he could probably go home either today or tomorrow. I'll leave that up to the primary service. He was started back on Tamiflu as per infectious disease. Denies any fever or chills. Coughing. Not producing any phlegm. No nausea vomiting or diarrhea. No chest pain or chest discomfort. On 10/13/2017 patient seen in follow-up. He states he is still very dyspneic with any activity, he is only been ambulating to the bathroom couple times a day , Ventolin rescue the time the patient states in the tripod position over his bedside table. Lung sounds are very diminished bilaterally, with end expiratory wheezing. So he is improving, he feels very fatigued and worn out. His been afebrile, hemodynamically stable, he is on 2 L per nasal cannula with O2 sat at 92%. Today's labs were reviewed, WBCs 12.0, CO2 36, BUN is 21, and creatinine 0.60. Patient is not bringing up any sputum, denies any fever or chills, denies any chest pain. Continue with current plan of care. On the 2017 patient seen in follow-up on medical surgical floor. He continues to feel very fatigued and worn out. Dyspneic with activity. Positive for some chills. Remains afebrile, on 3 L per nasal cannula his pulse ox is 99%, his other vitals are stable. His lung sounds are positive for very faint and expiratory wheezes, diminished breath sounds bilaterally. He states he is not getting any worse, but thinks he is not getting any better. He remains on a course of Tamiflu, Levaquin, nebulized treatments. Today's labs showed a PVC of 11.6, chloride is 96, carbon dioxide is 38, BUN is 23, creatinine is 0.62. he remains on droplet precautions. Feels like he is not back to his baseline. was seen in consultation by ID service. We'll continue with current plan of care, patient is not ready for discharge home yet. On 10/15/2017 patient seen in follow-up. He appears less fatigued today, more alert, and seems to be more energetic. Denies any worsening dyspnea, he has been ambulating within the room, tolerating activity fairly well. Remains afebrile, hemodynamically stable, he is on 2 L per nasal cannula with a pulse ox at 94%. Lung sounds are diminished with only a few faint end expiratory wheezes, but overall improving from previous exams. No new labs or chest x- rays today. From pulmonary standpoint patient is stable for discharge home today, infectious disease service has extended his Tamiflu treatment on outpatient basis, and patient will finish 5 more days of Tamiflu 75 mg every 12 hours, and 5 more days of Levaquin 500 mg daily. We will add a prednisone taper over 16 days, and patient can continue on his maintenance Advair, and DuoNeb nebulized treatments. Follow-up with Dr. Porter in the office at the beginning of the next week Objective - Vital Signs Vital signs: Vital Signs Temp 97.8 F 10/15/17 07:00 Pulse 82 10/15/17 11:39 Resp 16 10/15/17 07:00 BP 149/80 10/15/17 07:00 Pulse Ox 94 L 10/15/17 07:00 Intake & Output 10/14/17 10/15/17 10/15/17 18:59 06:59 18:59 Intake Total 230 Output Total 700 Balance -700 230 Weight 84.5 kg Intake: IV 230 Sodium Chloride 0.9% 1, 230 000 ml @ 20 mls/hr IV . Q24H [facility] Rx#:[id number] Output: Urine 700 Other: Voiding Method Urinal Urinal Urinal - Exam No acute distress, oriented 3. Nasal O2 in place. Patient is sitting in a chair, not tripoding today, his breathing seems to be easier today HEENT examination is grossly unremarkable. Mucous membranes are moist. No oral lesions. Neck supple. Full range of motion. No adenopathy thyromegaly or neck vein distention. Cardiovascular examination reveals regular rhythm rate. S1-S2 normal. No S3 or S4. No discernible murmur noted. Lungs reveal diminished breath sounds. There are a few faint end expiratory wheezes auscultated bilaterally Abdomen soft bowel sounds are heard. No masses or tenderness. Extremities are intact. No cyanosis clubbing or edema. Skin is without rash or lesion. Neurologic examination is brief but nonfocal. - Labs CBC & Chem 7: 10/14/17 07:52 10/14/17 07:52 Labs: Abnormal Lab Results - Last 24 Hours (Table) 10/14/17 10/14/17 10/15/17 Range/Units 17:05 20:25 07:05 POC Glucose (mg/dL) 103 H 138 H 116 H (75-99) mg/dL 10/15/17 Range/Units 11:39 POC Glucose (mg/dL) 106 H (75-99) mg/dL Assessment and Plan Plan: Assessment: COPD exacerbation complicated by purulent tracheobronchitis Recent and recurrent influenza A infection Hyperlipidemia Hypertension Hypothyroidism Previous heavy tobacco use History of anxiety Coronary artery disease with stent placement Plan: Patient reports improvement in his energy level, his breathing is improving, no fevers, no chills, no worsening chest congestion. He remains afebrile, vital signs are stable. From pulmonary standpoint patient can be cleared for discharge home today, infectious disease service has made a recommendation for 5 more days of oral Levaquin 500 mg, and another 5 days of Tamiflu treatment 75 mg twice a day. We will add a prednisone taper over 16 days, he can continue on his Advair and DuoNeb nebulized treatments. Follow-up with Dr. Porter in the office next week I performed a history & physical examination of the patient and discussed their management with my nurse practitioner, Rachel Bright. I reviewed the nurse practitioner's note and agree with the documented findings and plan of care. Lung sounds are positive for diminished air entry bilaterally with end expiratory wheezes. The findings and the impression was discussed with the patient. I attest to the documentation by the nurse practitioner.
--- NOTE | 2017-10-15 17:00 | P.DS ---
Providers Date of admission: 10/08/17 22:46 Expected date of discharge: 10/15/17 Attending physician: Leonard Tang Consults: 10/08/17 22:44 Consult Physician Routine Consulting Provider: Saqib Coe Consult Reason/Comments: copd Do you want consulting provider notified?: Yes 10/09/17 11:00 Consult Physician Routine Consulting Provider: Shantanu Morales Consult Reason/Comments: sepsis Do you want consulting provider notified?: Yes Primary care physician: Matthew Muniz Hospital Course: Final Diagnoses: 1. Acute COPD exacerbation with acute purulent tracheobronchitis with sepsis 2. influenza A 3. Leukocytes 4. COPD 5. Hypertension 6. Remote history of nicotine dependence 7. History of anxiety 8. CAD with history of stent placement 9. Hypothyroidism Hospital course:This is a 67-year-old gentleman admitted with acute COPD exacerbation, acute purulent tracheobronchitis, recent influenza A, possible sepsis and multiple other medical issues.Maintained on IV fluid hydration, nebulized bronchodilators, steroids , Tamiflu and antibiotics. Evaluated by pulmonary and infectious disease. Significant clinical improvement. Cleared for discharge by both infectious disease and pulmonary. Patient is being discharged home in a stable condition with guarded prognosis. Physical Exam:VSS, alert and oriented 3, no acute distress CARDIOVASCULAR: S1, S2 muffled. No murmur RESPIRATION: Better air entry with Breath sounds diminished in the bases. Occasional scattered rhonchi, no crackles. Minimal Expiratory wheezing ABDOMEN: Soft, nontender . No guarding. no masses palpable.Bowel sounds heard NERVOUS SYSTEM: No focal deficits. The impression and plan of care has been dictated as directed. : I performed a history and examination of this patient, discussed the same with the dictator. I agree with the dictator's note ,documented as a scribe. Any additional findings or plans will be noted. Time taken: 35 minutes Patient Condition at Discharge: Stable Plan - Discharge Summary Discharge Rx Participant: No New Discharge Prescriptions: New Levofloxacin [Levaquin] 500 mg PO DAILY #5 tab Oseltamivir [Tamiflu] 75 mg PO Q12HR #10 cap predniSONE 10 mg PO DAILY 16 Days #40 tab Fluticasone/Salmeterol [Advair 500-50 Diskus] 1 inhalation PO BID 30 Days #1 diskus Continue Levothyroxine Sodium [Synthroid] 100 mcg PO DAILY Ipratropium-Albuterol Nebulize [Duoneb 0.5 mg-3 mg/3 ml Soln] 3 ml INHALATION RT-QID Atorvastatin [Lipitor] 40 mg PO HS Aspirin EC [Ecotrin Low Dose] 81 mg PO DAILY Multivitamins, Thera [Multivitamin (formulary)] 1 tab PO DAILY Famotidine [Pepcid] 20 mg PO BID guaiFENesin [Mucinex] 600 mg PO BID Diltiazem HCl [Cartia Xt] 180 mg PO DAILY Albuterol Inhaler [Ventolin Hfa Inhaler] 1 - 2 puff INHALATION RT-QID PRN PRN Reason: Shortness Of Breath ALPRAZolam [Xanax] 0.5 mg PO DAILY PRN PRN Reason: Anxiety Roflumilast [Daliresp] 500 mcg PO DAILY Discontinued Doxycycline Monohydrate [Monodox] 100 mg PO BID Discharge Medication List ALPRAZolam [Xanax] 0.5 mg PO DAILY PRN 10/08/17 [History] Albuterol Inhaler [Ventolin Hfa Inhaler] 1 - 2 puff INHALATION RT-QID PRN [History] Aspirin EC [Ecotrin Low Dose] 81 mg PO DAILY 10/08/17 [History] Atorvastatin [Lipitor] 40 mg PO HS 10/08/17 [History] Diltiazem HCl [Cartia Xt] 180 mg PO DAILY 10/08/17 [History] Famotidine [Pepcid] 20 mg PO BID 10/08/17 [History] Ipratropium-Albuterol Nebulize [Duoneb 0.5 mg-3 mg/3 ml Soln] 3 ml INHALATION RT -QID 10/08/17 [History] Levothyroxine Sodium [Synthroid] 100 mcg PO DAILY 10/08/17 [History] Multivitamins, Thera [Multivitamin (formulary)] 1 tab PO DAILY 10/08/17 [History ] Roflumilast [Daliresp] 500 mcg PO DAILY 10/08/17 [History] guaiFENesin [Mucinex] 600 mg PO BID 10/08/17 [History] Levofloxacin [Levaquin] 500 mg PO DAILY #5 tab 10/13/17 [Rx] Oseltamivir [Tamiflu] 75 mg PO Q12HR #10 cap 10/13/17 [Rx] Fluticasone/Salmeterol [Advair 500-50 Diskus] 1 inhalation PO BID 30 Days #1 diskus 10/15/17 [Rx] predniSONE 10 mg PO DAILY 16 Days #40 tab 10/15/17 [Rx] Follow up Appointment(s)/Referral(s): Saqib Coe MD [STAFF PHYSICIAN] - 10/22/17 9:00 am [facility], [NON-STAFF] - 1 Week Matthew Muniz MD [Primary Care Provider] - 10/22/17 2:30 pm Ambulatory/Diagnostic Orders: Complete Blood Count w/diff [LAB.AMB] Time Frame: 3 Days, Location: Determined By Patient Patient Instructions/Handouts: Prednisone (By mouth), Levofloxacin (By mouth), Oseltamivir (By mouth), Fluticasone/Salmeterol (By breathing), Heart Healthy Diet (DC), Influenza (DC), COPD (Chronic Obstructive Pulmonary Disease) (DC) Activity/Diet/Wound Care/Special Instructions: Diet: Cardiac Activity: Limited until follow-up Oxygen at 2 liters
== END 2017-10-15 16:35 | disposition home or self-care (01) | DRG 872 ==
LOC: EC 20:50 → 6SEL 22:46 → 5MS5E 10-11 23:14
PROVIDERS: ADMIT Hospitalist; ATTEND Hospitalist
PROC: 5A09557 Assistance with Respiratory Ventilation, Greater than 96 Consecutive Hours, Continuous Positive Airway Pressure (ICD-10-PCS; principal; 2017-10-08)
DX: A41.9 Sepsis, unspecified organism (principal); J44.0 Chronic obstructive pulmonary disease with (acute) lower respiratory infection; J44.1 Chronic obstructive pulmonary disease with (acute) exacerbation; E03.9 Hypothyroidism, unspecified; E78.5 Hyperlipidemia, unspecified; I10 Essential (primary) hypertension; I25.10 Atherosclerotic heart disease of native coronary artery without angina pectoris; J10.1 Influenza due to other identified influenza virus with other respiratory manifestations; F41.9 Anxiety disorder, unspecified; R19.7 Diarrhea, unspecified; R60.0 Localized edema; R09.02 Hypoxemia; J20.9 Acute bronchitis, unspecified; Z79.82 Long term (current) use of aspirin; Z99.81 Dependence on supplemental oxygen; Z79.899 Other long term (current) drug therapy; Z95.5 Presence of coronary angioplasty implant and graft; Z87.891 Personal history of nicotine dependence; Z88.8 Allergy status to other drugs, medicaments and biological substances; Z82.49 Family history of ischemic heart disease and other diseases of the circulatory system
CPT/HCPCS: 36415; 71045; 80048; 80053; 81003; 82550; 82553; 83036; 83605; 83735; 83880; 84484; 85025; 85379; 85610; 85730; 87502; 93005; 94640; 96361; 96374; 96375; 99291

== ENCOUNTER → 2022-04-30 | Outpatient (CLI) | payer MEDICARE, BC ==
--- NOTE | 2022-04-30 15:13 | CT ---
EXAMINATION TYPE: High resolution CT chest without contrast DATE OF EXAM: 04/30/2022 COMPARISON: Radiograph 10/08/2017 HISTORY: 71-year-old male J44.9 COPD TECHNIQUE: High-resolution axial scanning of the chest utilizing 1 mm slice thickness. Both prone and supine imaging is performed without IV contrast per HRCT protocol. Coronal and sagittal reconstructi ons. CT DLP: 1781 mGycm Automated exposure control for dose reduction was used. FINDINGS: Heart normal size without pericardial effusion. 3 vessel coronary artery calcifications are present a nd are a marker for coronary artery disease. Ascending aorta ectatic and 3.8 cm. Mild atherosclerotic arch calcifications with conventional arch v essel branching anatomy. There may be mild or moderate apical scarring narrowing at the origin of the right subclavian artery. Borderline sized right lower paratracheal node measuring 1.1 cm likely reactive. Otherwise, no thorac ic lymphadenopathy by CT size criteria. Adherent secretions and mucoid debris at the brunilda and mainstem bronchi. Moderate diffuse bronchial wall thickening on a background of moderate to advanced centrilobular emph ysema. There is patchy opacity posterior right upper lobe present on both prone and supine imaging, series 6 image 104. Some additional mild patchy density anterior right midlung, axial 134. The couple anterior right midlung pulmonary nodules measuring up to 1.0 cm. These may represent promi nent intrafissural lymph nodes as they are located along the minor fissure. No dominant groundglass, bronchiectasis, tree-in-bud opacities, septal thickening, or honeycombing. Visualized upper abdomen shows no gross abnormality. Bones: No osseous destructive process. IMPRESSION: 1. COPD WITH MODERATE DIFFUSE BRONCHIAL WALL THICKENING. THIS COULD REPRESENT A PROMINENT COMPONENT O F CHRONIC BRONCHITIS OR SUPERIMPOSED ACUTE BRONCHITIS. SOME RETAINED SECRETIONS NOTED WITHIN THE MAIN STEM BRONCHI. 2. FOCAL PATCHY OPACITY POSTERIOR RIGHT UPPER LOBE. CORRELATE FOR ANY SYMPTOMS OF A DEVELOPING PNEUMO DAYNA. REASSESS IN 3 MONTHS TO ENSURE CLEARANCE AND EXCLUDE EARLY NEOPLASM. 3. SIMILAR CHANGES ANTERIOR RIGHT MIDLUNG. CLEARANCE CAN BE REASSESSED IN 3 MONTHS. 4. A COUPLE PULMONARY NODULES MEASURING UP TO 1 CM, SUSPECT REACTIVE INTRAFISSURAL LYMPH NODES. THESE SHOULD ALSO BE REASSESSED IN 3 MONTHS. 5. CAD WITH 3 VESSEL CORONARY ARTERY CALCIFICATIONS.
== END | disposition home or self-care (01) ==
LOC: RADCTMAIN 12:03
PROVIDERS: ATTEND Internal Medicine
DX: J44.9 Chronic obstructive pulmonary disease, unspecified (principal)
CPT/HCPCS: 71250

== ENCOUNTER → 2022-08-05 | Outpatient (CLI) | payer MEDICARE, BC ==
--- NOTE | 2022-08-05 18:34 | CT ---
EXAMINATION TYPE: CT chest wo con DATE OF EXAM: 08/05/2022 COMPARISON: 04/30/2022 HISTORY: COPD. hi res CT DLP: 860.3 mGycm, Automated exposure control for dose reduction was used. CONTRAST: None TECHNIQUE: Axial images were obtained at 1 mm thick sections at 10 mm intervals. This will limit po rtions of the examination which may not be visualized within the [id number]. Images were obtained in the prone and supine views. FINDINGS: The thyroid is not well visualized. No suspicious lung nodules or focal infiltrates are pr esent. Extensive emphysematous changes are present. Previous infiltrates appear to have resolved. Some under lying scarring may remain present. No enlarged mediastinal or hilar adenopathy is evident. There are scattered small lymph nodes prese nt. Coronary artery calcifications present. The ascending aorta diameter at the level of the main pul monary artery is 3.8 cm. The main pulmonary artery diameter at the bifurcation is 2.[address] sections are obtained through the upper abdomen. Abdomen is essentially unremarkable. IMPRESSIONS: 1. Extensive emphysematous changes.
== END | disposition home or self-care (01) ==
LOC: RADCTMAIN 14:11
PROVIDERS: ATTEND Internal Medicine
DX: J43.9 Emphysema, unspecified (principal)
CPT/HCPCS: 71250